=== PATIENT | female | born 1975 | race Caucasian/White ===

== ENCOUNTER 2017-07-07 09:56 | Day surgery (SDC) | payer OTHER ==
--- NOTE | 2017-06-27 10:51 | HP ---
AMENDED REPORT NOW INCLUDES COSIGNER DESIGNATION - ESIGNED BEFORE ADJUSTMENT PREOPERATIVE HISTORY AND PHYSICAL: DATE OF ADMISSION/SURGERY: 07/07/17 ATTENDING PHYSICIAN: Dara Schroeder MD * (DICTATED BY ALEXA ASKEW) PROCEDURE: Left shoulder arthroscopic rotator cuff repair, decompression and debridement, subpectoral biceps tenodesis. CHIEF COMPLAINT: Left shoulder pain. HISTORY OF PRESENT ILLNESS: Beverly is a 41-year-old female who presents to the clinic for left shoulder pain due to biceps tendonitis and rotator cuff repair. She has failed conservative measures and therefore, agreed to undergo a left shoulder arthroscopic rotator cuff repair, decompression and debridement, subpectoral biceps tenodesis with Dr. Schroeder on 07/07/17. PAST MEDICAL HISTORY: Anxiety, obesity, migraines, GERD, degenerative disk disease, left ankle fracture, fibromyalgia, history of convulsions from Lyrica, history of DVTs 10 years ago. PAST SURGICAL HISTORY: Left ankle x7, left knee x2, cholecystectomy, and right knee surgery. MEDICATIONS: 1. Cetirizine 10 mg 1 by mouth daily. 2. ProAir HFA 180-90 mcg per ACT 1 to 2 puffs every 4 to 6 hours as needed for shortness of breath. 3. Valacyclovir 1 g for 5 days, repeat as needed. 4. Sumatriptan succinate 100 mg 1 by mouth on headache onset. 5. Percocet 5/325, 1 to 2 by mouth every 6 hours as needed for pain. 6. Methocarbamol 750 mg 1 to 2 tabs every 8 hours as needed for muscle spasms. 7. Omeprazole 20 mg 1 by mouth every day. 8. Diclofenac sodium 75 mg 1 by mouth twice a day. 9. Fluticasone propionate 50 mcg per ACT, 2 sprays in each nostril once daily. 10. Duloxetine 15 mg take 1 by mouth daily. 11. Medical marijuana as needed. 12. Multivitamin 1 by mouth daily. ALLERGIES: ZANAFLEX, COPAXONE, Ether, COMPAZINE, ERYTHROMYCIN, LYRICA, GABAPENTIN, VOLTAREN. FAMILY HISTORY: Positive for diabetes, cancer, hypertension, and hypothyroidism. SOCIAL HISTORY: She lives with her daughter. She denies smoking. She reports occasional alcohol use. She denies illegal drug use. REVIEW OF SYSTEMS: A 14-point review of systems was reviewed with the patient. Positive for current complaint, otherwise negative. Denies chest pain, shortness of breath, fevers, chills, history of bleeding disorder. Positive for a history of DVT 10 years ago. PHYSICAL EXAMINATION GENERAL: A 41-year-old well-developed, well-nourished female, in no acute distress. Alert and oriented x3. Appropriate mood and affect. VITAL SIGNS: Height 61.5 inches, weight 210. Pulse 84, blood pressure 132/78, respiratory rate 14, temperature 98.1. BMI 39. HEENT: Normocephalic, atraumatic. PERRLA. Throat: Clear. NECK: Supple. LUNGS: Clear to auscultation bilaterally. No wheezing, rhonchi, or rales. CARDIO: Regular rate and rhythm. S1 and S2. No murmurs, gallops or rubs. No edema. ABDOMEN: Positive bowel sounds. Soft, nontender. MUSCULOSKELETAL: Left upper extremity, skin is intact. No warmth or erythema. Tender over the bicipital groove, nontender over the AC joint. A +4/5 strength to supraspinatus testing, positive [place], positive impingement, positive Baird and [place]er, [place], Speed. +2 radial pulse. Sensation is intact to light touch distally. NEUROLOGIC: Alert and oriented x3. Cranial nerves grossly intact. DIAGNOSTIC STUDIES: MRI revealed small full thickness tear to the anterior portion of the supraspinatus tendon. IMPRESSION: Left shoulder rotator cuff tear and biceps tendonitis. PLAN: The patient is scheduled to undergo a left shoulder arthroscopic rotator cuff repair, decompression and debridement, subpectoral biceps tenodesis with Dr. Schroeder on 07/07/17. She will return to the office 10 to 14 days postop for followup and suture removal. Oxycodone will be used as needed for postop pain. Keflex will be sent for antibiotic prophylaxis. The patient will also be on Lovenox 7 days postop for DVT prophylaxis due to her prior history of deep venous thrombosis. ALEXA ASKEW [id number]/[facility] #: [id number] [facility]ARE SYSTEMQuincy
[~2017-07-07 09:56] MED LIST: Buffered Lidocaine 0.9% SYRIN* 5 ML/SYR SYRINGE INTRADERM ONE
[2017-07-07] MEDS ORDERED: ceFAZolin 2 GM PREMIX (*) 2 GM/50 ML BAG IVPB ONE (10:24)
[2017-07-07] MEDS ORDERED: Ondansetron INJ* 2 MG/ML VIAL IV PRN (11:15)
[2017-07-07] MEDS ORDERED: DiMENhydriNATE IV* 50 MG/ML VIAL IV PUSH PRN (11:15)
[2017-07-07] MEDS ORDERED: fentaNYL* 50 MCG/ML 2 ML VIAL (100 MCG VIAL) IV PRN (11:15)
[2017-07-07] MEDS ORDERED: HYDROmorphone INJ* 1 MG/ML CARPUJECT SYRINGE IV PRN (11:15)
[2017-07-07] MEDS ORDERED: Acetaminophen TAB* 325 MG PO PRN (11:15)
[2017-07-07] MEDS ORDERED: Midazolam* 1 MG/ML 2 ML VIAL (2 MG) ONE ×2 (11:26→12:12)
[2017-07-07] MEDS ORDERED: fentaNYL* 50 MCG/ML 2 ML VIAL (100 MCG VIAL) ONE ×2 (11:26→12:20)
[2017-07-07] MEDS ORDERED: Bupivacaine 0.25% SDV* 30 ML ONE (11:48)
[2017-07-07] MEDS ORDERED: Famotidine IV* 10 MG/ML 2 ML (20 mg) ONE (11:50)
[2017-07-07] MEDS ORDERED: ROPIVACAINE 5 MG/ML 30 ML BTL (0.5%) ONE (11:50)
[2017-07-07] MEDS ORDERED: Labetalol IV* 5 MG/ML 20 ML VIAL ONE (12:23)
[2017-07-07] MEDS ORDERED: Ketorolac INJ* 30 MG/ML 1 ML VIAL ONE (12:23)
[2017-07-07] MEDS ORDERED: Dexamethasone IV* 4 MG/ML 1 ML (4 MG) ONE (12:23)
[2017-07-07] MEDS ORDERED: Ondansetron INJ* 2 MG/ML VIAL ONE (12:23)
[2017-07-07] MEDS ORDERED: Propofol* 10 MG/ML 20 ML BTL IV PUSH ONE (12:23)
[2017-07-07 15:09] VITALS: BP 150/89
--- NOTE | 2017-07-21 15:36 | OP ---
DATE OF OPERATION: 07/07/17 [facility] DATE OF : 73 SURGEON: Dara Schroeder MD. IT ANALYST: ALEXA Bermeo. PRE-OP DIAGNOSIS: Left shoulder high-grade partial-thickness tear of the rotator cuff. POST-OP DIAGNOSIS: Left shoulder high-grade partial-thickness tear of the rotator cuff, SLAP tear OPERATIVE PROCEDURE: 1. Left shoulder arthroscopy with glenohumeral debridement. 2. Arthroscopic biceps tenodesis. 3. Rotator cuff tear, supraspinatus tendon, repair in a double-row fashion. 4. Subacromial decompression with acromioplasty. COMPLICATIONS: None. ESTIMATED BLOOD LOSS: Minimal. IMPLANTS USED: One Sherman [employer] Nephew 4.75 Fast-Fix, 1 Multifix, and 1 Q-Fix 2.8 mm . INDICATIONS: Beverly Wallis is a 41-year-old female who has had left shoulder pain for a number of years off and on. She has failed conservative management. She has done physical therapy. She has been diagnosed with a partial thickness tear. Her symptoms got worse. After extensive discussion of the risks and benefits of operative versus nonoperative treatment, she would like to proceed with surgical treatment. Risks include but are not limited to bleeding, infection, damage to nerve vessels, surrounding structures, wound nonhealing, persistent pain, need for further surgery, scarring, stiffness, incomplete relief of symptoms, risks of anesthesia. DESCRIPTION OF PROCEDURE: The patient was greeted in the preoperative area by the attending surgeon. The correct extremity was marked and consent was confirmed. The patient then underwent preoperative interscalene block by the anesthesiologist, after which she was brought to the to the operating suite where she was placed in the supine position on the operating room table. She then underwent general anesthesia and endotracheal intubation, after which she was placed in the right lateral decubitus position. All bony prominences were padded. The left arm was draped unsterilely with 10-pound traction. The left shoulder was then prepped and draped in usual sterile fashion beginning with chlorhexidine soap and scrub, alcohol wipe, and final prep with ChloraPrep. After appropriate surgical pause, indicating side, site, procedure, administration of antibiotics, a standard posterolateral portal was made sharply with an 11 blade. The scope was introduced into the joint and the joint was examined. There was grade 0 to 1 changes of glenohumeral joint. There was anterior posterior superior fraying. There was undersurface tearing of the supraspinatus, which was intact with abundant hyperemia and erythema in the joint as well as synovitis inferiorly. The biceps tendon had obvious fraying and the superior labrum was detached. The biceps was then tagged using 0 PDS suture and tenotomized for later tenodesis to be done arthroscopically. Once the debridement was completed, attention was directed to the subacromial space. The scope was positioned in the subacromial space. The lateral portal was made in an outside-in fashion. The soft tissue and bursa was debrided back using a shaver. The undersurface of the acromion was exposed using electro-cautery device. A small spur was identified. The 4-0 oval deepak was then used to do an acromioplasty. Attention has been directed to the biceps and the rotator cuff, which had high grade partial-thickness tear in the bursal side as well; decision was made to do a repair. Prior to this, the biceps was addressed. The biceps groove was identified arthroscopically. The biceps was mobilized and then through a separate stab incision, a 2.8 mm Q-Fix guide was placed with excellent purchase. The sutures were then passed through the biceps tendon at the level of the bicipital groove. The sutures were then tied down and excess stump was then debrided back. Attention was then directed to the rotator cuff. The greater tuberosity was debrided and removed of any loose tissue using electrocautery device. A rasp was used to help decorticate those, a 4-0 oval deepak gently decorticated the tuberosity. The rotator cuff was also debrided back to a stable layer. The cuff was then mobilized. Through a separate stab incision, 4.75 Healicoil was placed. There was excellent purchase along the medial row. The sutures were passed through the tendon in a horizontal mattress configuration and tied down using arthroscopic knot tying. The strands were then passed through a Multifix anchor which was then secured laterally for lateral fixation. Final images were obtained. Shoulder was taken through gentle range of motion and found to be intact. The wounds were copiously irrigated with sterile saline. The portals were closed with 3-0 nylon. Sterile dressings, Cryo/Cuff and Ultra sling were applied. She was awoken from anesthesia and transferred to PACU in stable condition. POSTOPERATIVE PLAN: She will be discharged on pain medications. She is already in the pain clinic. We will coordinate with them for her pain management. DVT prophylaxis was considered, but deferred due to no previous personal or family history. I will see the patient back in 10 to 14 days. [id number]/[facility] #: [id number] MTDD
== END 2017-07-07 15:10 | disposition home or self-care (01) ==
LOC: OREAST 09:56
PROVIDERS: ATTEND Orthopaedic Surgery
DX: M75.112 Incomplete rotator cuff tear or rupture of left shoulder, not specified as traumatic (principal); G89.18 Other acute postprocedural pain; F41.9 Anxiety disorder, unspecified; E66.9 Obesity, unspecified; Z68.39 Body mass index [BMI] 39.0-39.9, adult; G43.909 Migraine, unspecified, not intractable, without status migrainosus; K21.9 Gastro-esophageal reflux disease without esophagitis; M79.7 Fibromyalgia; Z88.8 Allergy status to other drugs, medicaments and biological substances; Z88.1 Allergy status to other antibiotic agents; Z88.6 Allergy status to analgesic agent
CPT/HCPCS: 81025; C1713; C1776; J0690; J1100; J1885; J2250; J2405; J2704; J2795; J3010

== ENCOUNTER 2017-09-29 07:39 | Day surgery (SDC) | payer OTHER ==
[~2017-09-29 07:39] MED LIST changes: +Dexamethasone IV* 4 MG/ML 1 ML (4 MG) IV SLOW PU ONE; +Famotidine IV* 10 MG/ML 2 ML (20 mg) IV ONE
[2017-09-29] MEDS ORDERED: Dexamethasone IV* 4 MG/ML 1 ML (4 MG) ONE (07:57)
[2017-09-29] MEDS ORDERED: ceFAZolin 2 GM (*##) 2 GM/100 ML BAG USE CEFA2SOL IVPB ONE (07:57)
[2017-09-29] MEDS ORDERED: Famotidine IV* 10 MG/ML 2 ML (20 mg) ONE (07:57)
[2017-09-29] MEDS ORDERED: Bupivacaine 0.25% SDV* 30 ML ONE (08:08)
[2017-09-29] MEDS ORDERED: Propofol* 10 MG/ML 20 ML BTL IV PUSH ONE (08:45)
[2017-09-29] MEDS ORDERED: Lidocaine 2% PF * 5 ML VIAL ONE (08:45)
[2017-09-29] MEDS ORDERED: Mivacurium Chloride* 20 MG/10 ML VIAL IV ONE (08:45)
[2017-09-29] MEDS ORDERED: fentaNYL* 50 MCG/ML 2 ML VIAL (100 MCG VIAL) ONE (08:47)
[2017-09-29] MEDS ORDERED: Midazolam* 1 MG/ML 2 ML VIAL (2 MG) ONE ×2 (08:47)
[2017-09-29] MEDS ORDERED: ROPIVACAINE 5 MG/ML 30 ML BTL (0.5%) ONE (09:05)
[2017-09-29] MEDS ORDERED: Ketorolac INJ* 30 MG/ML 1 ML VIAL IV PRN (10:19)
[2017-09-29] MEDS ORDERED: fentaNYL* 50 MCG/ML 2 ML VIAL (100 MCG VIAL) IV PRN (10:19)
[2017-09-29] MEDS ORDERED: diPHENhydraMINE IV* 50 MG/ML 1 ml VIAL (BENADRYL) IV PRN (10:19)
[2017-09-29] MEDS ORDERED: Naloxone* 0.4 MG/ML 1 ML VIAL IV PRN (10:19)
[2017-09-29] MEDS ORDERED: oxyCODONE/Acetamin 5/325 MG* TAB PO PRN (10:19)
[2017-09-29] MEDS ORDERED: Ondansetron INJ* 2 MG/ML VIAL ONE (10:44)
[2017-09-29 11:56] VITALS: BP 142/90
--- NOTE | 2017-09-30 08:10 | OP ---
CC: PCP, Melvin Browning MD * DATE OF OPERATION: 09/29/17 [facility] DATE OF : 73 SURGEON: Dara Schroeder MD TRANSITIONAL CARE MANAGER: ALEXA Bermeo. An information services assistant was needed for the entirety of the case to help with positioning, retraction and was utilized throughout all portions of the case. ANESTHESIOLOGIST: Dr. Sapp. ANESTHESIA: General with interscalene block. PRE-OP DIAGNOSIS: Retear of the left previous repaired rotator cuff. POST-OP DIAGNOSIS: Retear of the left previous repaired rotator cuff. OPERATIVE PROCEDURE: Left shoulder arthroscopy with revision of rotator cuff repair. COMPLICATIONS: None. ESTIMATED BLOOD LOSS: Minimal. IMPLANTS USED: Two 4.75 Healicoils and 1 MultiFix. INDICATIONS: Beverly Wallis is a 42-year-old female who underwent previous left shoulder rotator cuff repair with arthroscopic biceps tenodesis decompression and debridement within the last 2 months. She was in her postop recovery phase when she slipped and fell on her shoulder. She was diagnosed with a re-tear of the rotator cuff. She has failed conservative management and we discussed revision repair. The risks and benefits of surgery were discussed in length which include but not limited to bleeding, infection, damage to nerves, vessels , surrounding structures, wound nonhealing, persistent pain, need for further surgery, scarring, stiffness, incomplete relief of symptoms, risks of anesthesia. DESCRIPTION OF PROCEDURE: The patient was greeted in the preoperative area by the attending surgeon. Correct extremity was marked, consent was confirmed. The patient then underwent interscalene nerve block by the anesthesiologist, after which she was brought back to the operating suite and she was placed in supine position on the operating table. She then underwent general anesthesia and endotracheal intubation after which she was placed in the right lateral decubitus position with an axillary roll. All bony prominences were padded. She was secured with peg board and the left arm was draped unsterile with 10 pounds of traction. The left shoulder was prepped and draped in usual sterile fashion beginning with chlorhexidine soap, scrub, and alcohol wipe and a final prep with ChloraPrep. After appropriate surgical pause indicating site, side, procedure, administration of antibiotics, the standard posterolateral portal was made sharply with an 11 blade. The scope was introduced into the joint and the joint was examined. There was evidence of full thickness tear of the supra encompassing the anterior portion of the infraspinatus. The glenohumeral joint had a mild amount of wear with 0 to 1 changes. The biceps had previously been tenotomized. The undersurface of the sub- scap was intact, but had injection irritation. There was damage and tearing of the anterior interval. The inferior recess was intact. There was abundant synovitis and erythema in the joint. After the glenohumeral joint was examined, the scope was repositioned to subacromial space. There was abundant bursa present. This was debrided back using the shaver until it exposed the rotator cuff tear. The previous sutures were then carefully removed. These required cutting some of the remaining strands. The tendon had torn through the sutures. Excess tissues were removed. The lateral portal was made in an outside-in fashion. The cuff was then carefully mobilized. The foot print was completely bare at the previous tear and starting to tear into the infraspinatus foot print. The shaver was used to debride the tendon back. The anterior portal was made in an outside-in fashion. Two anchors were placed through separate stab incisions, two 4.75 Healicoils were placed in the medial row and passed through the tendon in a horizontal mattress configuration and then tied down. The sutures were then passed through a MultiFix anchor, which was placed in lateral row fixation. This allowed for sabianist of the cuff to the tuberosity as well as lying it down upon the tuberosity. The final images were obtained. The wounds were copiously irrigated with sterile saline. The portals were closed with 3-0 nylon. Sterile dressings were applied. Cryo/Cuff and Ultra sling were applied. She was awoken from anesthesia and transferred to PACU in stable condition. POSTOPERATIVE PLAN: She will be nonweightbearing. She will be in the sling for 6 weeks. She will be started on physical therapy at 4 weeks. I will see the patient back in 10 to 14 days. DVT prophylaxis was considered and because she has a history, we will place her on Lovenox for 2 weeks postop. [id number]/[facility] #: [id number] MTDQuincy
== END 2017-09-29 12:10 | disposition home or self-care (01) ==
LOC: OREAST 07:39
PROVIDERS: ATTEND Orthopaedic Surgery
DX: S46.012A Strain of muscle(s) and tendon(s) of the rotator cuff of left shoulder, initial encounter (principal); W19.XXXA Unspecified fall, initial encounter; Y92.9 Unspecified place or not applicable; F41.9 Anxiety disorder, unspecified; G89.18 Other acute postprocedural pain
CPT/HCPCS: 81025; C1713; J1100; J2250; J2405; J2704; J2795; J3010

== ENCOUNTER 2018-03-03 15:43 | Emergency (ER) | payer MEDICAID, OTHER ==
--- OUTSIDE RECORDS SUMMARY | 2018-03-03 15:58 | XMS REPORT ---
:1975 External Reference #:[id number] Author Organization [facility] Address [address], [address] [place] [address] Phone [phone] Care Team Providers Name Role Phone Anny Gay PA Care Team Information Supervisor Nutritional Yeast Unavailable Anny Gay PA Primary Care Physician Unavailable Payers Type Date Identification Numbers Payment Provider Subscriber Commercial Policy Number: [id number] [employer] Beverly Wallis PayID: [id number] [address] [place] [address] Problems Date Description Provider Status Onset: 02/24/2018 Anxiety state ALEXA Ruiz Active Onset: 02/24/2018 Moderate recurrent major depression ALEXA Ruiz Active Onset: 02/24/2018 Gastroesophageal reflux disease ALEXA Ruiz Active Onset: 02/24/2018 Mild intermittent asthma ALEXA Ruiz Active Family History Date Family Member(s) Problem(s) Comments Father Alzheimer's Disease Father Diabetes Father Hypertension Father Prostate Cancer : (age 68 Mother due to Cancer Thyroid Years) Mother Hypertension Mother Obesity Children 1 First Daughter 17 Paternal Grandfather due to Aneurysm () Paternal Grandmother due to Diabetes () Maternal Grandfather due to Heart Disease () Maternal Grandmother due to Motor Vehicle () Accident Social History Type Date Description Comments Lives With Boyfriend Jameson Diet Patient follows no dietary Healthy diet. Cooks at home. restrictions Occupation Unemployed Trying for disability due to chronic joint condition and mental health issues. Cigarette Use Never Smoked Cigarettes Uses medical marijuana ETOH Use Currently consumes alcohol ETOH Use Currently consumes alcohol 1 glass red wine nightly Smoking Patient denies history of smoking Smoking Patient denies history of smoking Daily Caffeine Consumes on average 1 cup of hot tea per day Allergies, Adverse Reactions, Alerts Date Description Reaction Status Severity Comments 02/24/2018 Compazine active skin disturbance 02/24/2018 Pyridium active vomiting, blisters 02/24/2018 Zanaflex active hives 02/24/2018 Adhesives active paper tape, gives blisters Medications Medication Date Status Form Strength Qnty SIG Indications Ordering Provider Methocarbamol 02/24/ Active Tablets 500mg 14tab 1 tabs by Yue 2017 s mouth at Fanta Ralph bedtime as needed for muscle spasm Ventolin HFA 02/24/ Active Aerosol 108(90Base 18gm 2 puffs J45.20 Yue 2017 ) mcg/Act every 4 Fanta Ralph hours as needed for cough and wheeze Duloxetine HCL / Active Caps DR Part 60mg 1 by Unknown 0000 mouth every day along with 30 mg to equal 90 daily Diclofenac / Active Tablets DR 75mg take 1 Unknown Sodium 0000 tablet by mouth twice daily with food Hydroxyzine / Active Capsules 25mg take one Unknown Pamoate 0000 capsule by mouth every 8 hours as needed (maximum daily dose=3) Zyrtec Allergy / Active Tablets 10mg 1 tab by Unknown 0000 mouth every night Omeprazole / Active Capsules DR 20mg 1 by K21.9 Unknown 0000 mouth every day Oxycodone-Aceta / Active Tablets 7.5-325mg Unknown minophen 0000 Sumatriptan / Active Tablets 100mg 1 tab by G43.009 Unknown Succinate 0000 mouth first sign of migraine may repeat once after 2 hours, if needed Mirena (52 MG) / Active IUD 20mcg/24HR Unknown 0000 Flonase Allergy / Active Suspension 50mcg/Act 1 spray J30.9 Unknown Relief 0000 each nare every day Vital Signs Date Vital Result Comment 02/24/2018 BP Systolic 114 mmHg BP Diastolic 72 mmHg Body Temperature 97.5 F Heart Rate 84 /min Respiratory Rate 18 /min Height 62.5 inches 5'2.50" Weight 181.00 lb BMI (Body Mass Index) 32.6 kg/m2 BSA (Body Surface Area) 1.84 m2 Harrison body weight in kilograms 51 O2 % BldC Oximetry 97 % Results Test Date Test Result H/L Range Note Urine Dipstick 02/24/2018 Ua Color yellow Yellow Ua Clarity clear Clear Ua Leuko neg Negative Ua Nitrite neg Negative Ua Urobilinogen 0.2 0.2 - 1.0 E.U./dL Ua Protein neg Negative Ua PH 6.5 6.5-7.5 Ua Blood neg Negative Ua Specific [place] 1.020 1.010-1.030 Ua Ketones neg Negative Ua Bilirubin neg Negative Ua Glucose neg Negative Procedures Date CPT Code Description Status 07/21/2016 Mammogram Completed Plan of Care Future Appointment(s):03/24/2018 3:30 pm - ALEXA Ruiz at [facility]02/24/2018 - ALEXA RuizJ45.20 Mild intermittent asthma, uncomplicatedNew Medication:Ventolin HFA 108(90 Base) mcg/ActK21.9 Gastro- esophageal reflux disease without esophagitisComments:Limit spiciy and acidic foods in the diet. Eat small meals and snacks. Avoid eating just prior to bedtime. Elevated the head of the bed to reduce nightime symptoms.F33.1 Major depressive disorder, recurrent, moderateComments:Please consult with psychiatry at [facility]. We can fill your meds until you have a consult. But, this service should be available to you and I think it would be preferable.F41.9 Anxiety disorder, unspecifiedFollow up:1 month PE. record Release
--- OUTSIDE RECORDS SUMMARY | 2018-03-03 15:59 | XMS REPORT ---
:1975 External Reference #:[id number] Author Organization [facility] Address [address] [place] [address] Phone [phone] Care Team Providers Name Role Phone Melvin Browning III, MD Primary Care Physician Unavailable Payers Type Date Identification Numbers Payment Provider Subscriber Medicaid Policy Number: [id number] Medicaid [employer] Name: 1 1 [address] PayID: [id number] [place] [address] Commercial Expires: 2018 Policy Number: [id number] [employer] Number: [id number] [address] PayID: [id number] [place] [address] Commercial Effective: 2015 Policy Number: [id number] [employer] Expires: 2015 PayID: [id number] [address] [place] [address] Medigap Part B Expires: 2016 Policy Number: [id number] Medicaid [employer] Name: [phone] [address] PayID: [id number] [place] [address] Commercial Expires: 2016 Policy Number: [id number] [employer]ay [employer] Name: [id number] [address] PayID: [id number] [place] [address] Workers Compensation Effective: 2015 Policy Number: No Fault [employer] [id number] Onset: 2015 PayID: [id number] Medigap Part B Expires: 2015 Policy Number: [id number] Medicaid [employer] Name: 1 1 [address] PayID: [id number] [place] [address] Problems Date Description Provider Status Onset: 03/28/2015 Anxiety Tom Dobson NP Active Onset: 03/28/2015 Primary fibromyalgia syndrome Tom Dobson NP Active Onset: 03/28/2015 Chronic pain Tom Dobson NP Active Onset: 03/28/2015 Gastroesophageal reflux disease Tom Dobson NP Active Onset: 05/09/2015 Genital herpes simplex Tom Dobson NP Active Onset: 05/17/2015 Knee joint effusion Alejandrina Burns M.D. Active Onset: 06/05/2015 Sprain of anterior cruciate ligament of Dara Schroeder MD Active right knee, subs Onset: 05/27/2017 Injury of shoulder region Dara Schroeder MD Active Onset: 05/27/2017 Strain of musc/tend the rotator cuff of Dara Schroeder MD Active left shoulder, subs Onset: 05/27/2017 Lesion of ulnar nerve Dara Schroeder MD Active Family History Date Family Member(s) Problem(s) Comments General Diabetes General Cancer Father Diabetes Father Bipolar Disorder Father Hypertension 69 Mother due to Thyroid Cancer () Social History Type Date Description Comments Marital Status Single Lives With Daughter Occupation [employer] ETOH Use Occasionally consumes alcohol Smoking Patient has never smoked Daily Caffeine Consumes on average 1 cup of regular coffee per day Exercise Type/Frequency Does not exercise Allergies, Adverse Reactions, Alerts Date Description Reaction Status Severity Comments 03/20/2015 Zanaflex active 03/20/2015 Copaxone active 03/20/2015 Ethyol active 03/24/2015 Compazine active 03/24/2015 Erythromycin active 03/24/2015 Lyrica Convulsions active 03/24/2015 Gabapentin Hives active 03/24/2015 Pyridium active 03/30/2015 Voltaren active Medications Medication Date Status Form Strength Qnty SIG Indications Ordering Provider Duloxetine HCL 09/17/ Active Caps DR 30mg 30caps 1 by mouth Tom 2018 Part every day LOLLY Dobson Hydroxyzine 09/10/ Active Capsules 25mg 60caps 1-2 caps Tom Pamoate 2018 by mouth LOLLY Dobson three times a day as needed for anxiety Cetirizine HCL 12/24/ Active Tablets 10mg 30tabs Take 1 Tom 2017 Tablet By LOLLY Dobson Mouth Once Daily Valacyclovir 05/19/ Active Tablets 1gm 20tabs 1 every Tom HCL 2015 day for 5 LOLLY Dobson days , repeat as needed Sumatriptan 09/12/ Active Tablets 100mg 9tabs Take One Tom Succinate 2015 Tablet By LOLLY Dobson Mouth AT Onset Of Headache Methocarbamol 06/20/ Active Tablets 750mg 60tabs take one Zaeziob 2014 to two MD Alexandre tablets by mouth every 8 hours as needed for muscle spasm Omeprazole 06/19/ Active Capsules 20mg 30caps Take One Tom 2015 DR Capsule By LOLLY Dobson Mouth Once Daily Diclofenac 06/05/ Active Tablets DR 75mg 60tabs Take One S83.511D Zaneb Sodium 2014 Tablet By MD Alexandre Mouth Twice Daily With Food Duloxetine HCL 05/10/ Active Caps DR 60mg 30caps take one M60.80 Tom 2014 Part capsule by LOLLY Dobson mouth once daily F41.9 Fluticasone 05/10/2015 Active Suspension 50mcg/Act 16units Use Two Tom Propionate [place](S) In LOLLY Dobson Each Nostril Once Daily Percocet Active Tablets 7.5-325mg 1 by mouth Unknown every 6 hours as needed pain Oxycodone HCL 10/02/2017 Hx Tablets 10mg 30tabs take 1/2-1 tab Zaneb - every 6-8 Yaseen, 12/24/2017 hours as MD needed pain Oxycodone HCL 09/29/2017 Hx Tablets 5mg 30tabs 1-2 tabs by Zaneb - mouth every se, 10/30/2017 4-6 hours as MD needed post op pain Lovenox 09/29/2017 Hx Solution 40mg/0.4ML 10inj 1- 40 mg Zaneb - injection se, 12/24/2017 subcutaneously MD daily x 10 days. please dispense appropriate amount. do not take before surgery Keflex 09/29/2017 Hx Capsules 500mg 12caps take 1 tab by Zaneb - mouth four Yaseen, 12/24/2017 times a day x MD 3 days Ketorolac 07/07/2017 Hx Tablets 10mg 20tabs take 1 by Zaneb Tromethamine - mouth every 6 Yaseen, 09/25/2017 hours x 5 MD days. Start 07/08 Tramadol HCL 07/07/2017 Hx Tablets 50mg 30tabs 1-2 tablet by Zaneb - mouth every Yaseen, 12/24/2017 4-6 hours as MD needed pain Keflex 07/05/2017 Hx Capsules 500mg 12caps take 1 tab by Zaneb - mouth four Yase, 09/25/2017 times a day x MD 3 days. Do not take before surgery Lovenox 07/05/2017 Hx Solution 40mg/0.4ML 7inj 1- 40 mg Zaneb - injection se, 09/25/2017 subcutaneously MD daily x 7 days. please dispense appropriate amount. do not take before surgery Oxycodone HCL 06/26/2017 Hx Tablets 5mg 28tabs 1 tab by mouth Zaneb - every 6 hours , 09/25/2017 as needed for MD pain. Proair HFA 11/21/2016 Hx Aerosol 108(90Base 8.5units take 1-2 puffs Tom - ) mcg/Act every 4-6 Olya, COMPLIANCE VICE PRESIDENT 06/30/2017 hours as needed for shortness of breath. Doxycycline 08/07/2016 Hx Capsules 100mg 20caps one tablet J Tom Hyclate - twice daily 0 Olya, COMPLIANCE VICE PRESIDENT 08/17/2016 for 10 days. 6 . 9 Ciclopirox 08/07/2016 Hx Solution 8% 6.600ml apply to B Tom - affected 3 Olya, COMPLIANCE VICE PRESIDENT 01/13/2017 toenails once 5 daily. remove . every 7 days 1 with alcohol Fluconazole 07/19/2016 Hx Tablets 150mg 2tabs one by mouth Elizabeth - may repeat in [place], 07/25/2016 3 days as N.P. needed Benzonatate 07/10/2016 Hx Capsules 200mg 30caps one by mouth J Tom - three times 0 Olya, COMPLIANCE VICE PRESIDENT 01/13/2017 daily as 1 needed for . cough 9 0 Amoxicillin/Cl 07/10/2016 Hx Tablets 875-125mg 20tabs take one J Tom avulanate - tablet q12 0 Olya, COMPLIANCE VICE PRESIDENT Potassium 07/20/2016 hours for 10 1 days . 9 0 ACL Functional 09/28/2015 Hx 1units dispo 1 S Zaneb Brace - 8 Yaseen, 01/13/2017 3 MD . 5 1 1 D Percocet 08/10/2015 Hx Tablets 5-325mg 60tabs 1-2 by mouth S Zaneb - every 6 hours , 09/25/2017 as needed pain 3 MD . 5 1 1 D Lovenox 08/10/2015 Hx Solution 40mg/0.4ML 21units 1 injection SQ S Zaneb - QDay following , 05/19/2016 surgery for 3 MD three weeks . 5 1 1 D Keflex 08/10/2015 Hx Capsules 500mg 15caps one tablet S Zaneb - three times a , 12/07/2015 day x 5 days 3 MD . 5 1 1 D Requip 06/20/2015 Hx Tablets 0.5mg 90tabs take three Tom - tablets by LOLLY Dobson 08/27/2016 mouth every day Requip 06/19/2015 Hx Tablets 5mg 90tabs 3 tabs by Tom - mouth daily LOLLY Dobson 06/20/2015 Naproxen 04/04/2015 Hx Tablets 500mg 60tabs Take One Ruslan - Tablet By Pamela Aleman, 06/23/2017 Mouth Twice M.D.,FACP Daily With Food as Needed For Pain Duloxetine HCL 03/24/[address] 30mg 60caps take one cap. M Tom - Part once daily for 6 LOLLY Dobson 05/10/2015 one week then 0 increase to 2 . caps daily. 8 0 Pennsaid 03/24/2015 Hx Solution 2% 112gm Apply 2 pumps 7 Tom - of solution to 1 LOLLY Dobson 05/09/2015 affected knee 9 twice daily. . 4 6 Zoloft Hx 100mg 1 po daily 7 Tom - 2 LOLLY Dobson 03/24/2015 9 . 1 Zyrtec Allergy Hx Tablets 10mg 30tabs 1 by mouth Tom - daily LOLLY Dobson 12/24/2016 Hydrocodone-Ac Hx Unknown etaminophen - 03/24/2015 Flexeril Hx Unknown - 03/24/2015 Ibuprofen Hx Tablets 800mg by mouth three Unknown - times a day as 04/04/2015 needed Hydrocodone-Ac Hx Tablets 5-325mg 1 by mouth Unknown etaminophen - every 4-6 05/09/2015 hours prn. Amitriptyline Hx Tablets 50mg 1 by mouth Unknown HCL - every night at 12/07/2015 bedtime Ibuprofen Hx Tablets 800mg by mouth three Unknown - times a day as 06/23/2017 needed Medications Administered in Office Medication Date Status Form Strength Qnty SIG Indications Ordering Provider Triamcinolone Injection Marisol (Kenalog) 2016 WESLEY Chamberlain Vital Signs Date Vital Result Comment 02/03/2018 Height 61.5 inches 5'1.50" Weight 180.00 lb Heart Rate 92 /min Respiratory Rate 16 /min Body Temperature 97.1 F BMI (Body Mass Index) 33.5 kg/m2 01/22/2018 Height 61.5 inches 5'1.50" Weight 180.00 lb Heart Rate 86 /min BP Systolic Sitting 127 mmHg BP Diastolic Sitting 80 mmHg Respiratory Rate 14 /min Pain Level 6 BMI (Body Mass Index) 33.5 kg/m2 12/30/2017 Height 61.5 inches 5'1.50" Weight 179.00 lb Heart Rate 84 /min BP Systolic 132 mmHg BP Diastolic 80 mmHg Respiratory Rate 17 /min Body Temperature 95.3 F Pain Level 4 BMI (Body Mass Index) 33.3 kg/m2 12/26/2017 Height 61.5 inches 5'1.50" Weight 178.50 lb Heart Rate 85 /min BP Systolic 135 mmHg BP Diastolic 83 mmHg O2 % BldC Oximetry 100 % BMI (Body Mass Index) 33.2 kg/m2 12/25/2017 Height 61.5 inches 5'1.50" Weight 181.75 lb Heart Rate 72 /min BP Systolic 132 mmHg BP Diastolic 96 mmHg Respiratory Rate 16 /min Body Temperature 98.1 F Pain Level 0 BMI (Body Mass Index) 33.8 kg/m2 11/17/2017 Weight 193.75 lb Heart Rate 82 /min BP Systolic 130 mmHg BP Diastolic 78 mmHg O2 % BldC Oximetry 98 % 11/13/2017 Height 61.5 inches 5'1.50" Weight 192.00 lb BP Systolic 132 mmHg BP Diastolic 84 mmHg Respiratory Rate 18 /min Body Temperature 97.6 F Pain Level 4 BMI (Body Mass Index) 35.7 kg/m2 10/09/2017 Height 61.5 inches 5'1.50" Weight 192.00 lb BP Systolic 134 mmHg BP Diastolic 82 mmHg Respiratory Rate 20 /min Body Temperature 97.9 F Pain Level 4 BMI (Body Mass Index) 35.7 kg/m2 09/16/2017 Height 61.5 inches 5'1.50" Heart Rate 79 /min BP Systolic 126 mmHg BP Diastolic 82 mmHg Respiratory Rate 16 /min Body Temperature 97.7 F Pain Level 5 08/29/2017 Height 61.5 inches 5'1.50" Weight 210.00 lb BP Systolic 130 mmHg BP Diastolic 74 mmHg Respiratory Rate 20 /min Pain Level 6 BMI (Body Mass Index) 39.0 kg/m2 08/07/2017 Height 61.5 inches 5'1.50" Weight 210.00 lb BP Systolic 128 mmHg BP Diastolic 82 mmHg Respiratory Rate 20 /min Body Temperature 97.4 F Pain Level 2 BMI (Body Mass Index) 39.0 kg/m2 07/17/2017 Height 61.5 inches 5'1.50" Heart Rate 59 /min BP Systolic Standing 140 mmHg BP Diastolic Standing 77 mmHg Respiratory Rate 20 /min Body Temperature 97.5 F Pain Level 1 06/26/2017 Height 61.5 inches 5'1.50" Weight 210.00 lb Heart Rate 84 /min BP Systolic 132 mmHg BP Diastolic 78 mmHg Respiratory Rate 14 /min Body Temperature 98.1 F Pain Level 5 BMI (Body Mass Index) 39.0 kg/m2 06/23/2017 Height 61.5 inches 5'1.50" Weight 216.00 lb Heart Rate 75 /min BP Systolic Sitting 152 mmHg BP Diastolic Sitting 98 mmHg Body Temperature 99.1 F O2 % BldC Oximetry 97 % BMI (Body Mass Index) 40.1 kg/m2 05/27/2017 Height 61 inches 5'1" Weight 216.00 lb BP Systolic 130 mmHg BP Diastolic 86 mmHg Respiratory Rate 20 /min Pain Level 6 BMI (Body Mass Index) 40.8 kg/m2 05/09/2017 Weight 216.00 lb Heart Rate 85 /min BP Systolic Sitting 142 mmHg BP Diastolic Sitting 88 mmHg Pain Level 7 L upper arm O2 % BldC Oximetry 99 % 04/16/2017 Height 61 inches 5'1" Weight 209.00 lb Heart Rate 91 /min BP Systolic Sitting 128 mmHg BP Diastolic Sitting 88 mmHg Pain Level 6 L shoulder, hand O2 % BldC Oximetry 98 % BMI (Body Mass Index) 39.5 kg/m2 01/13/2017 Weight 207.75 lb Heart Rate 87 /min BP Systolic 124 mmHg BP Diastolic 78 mmHg Body Temperature 97.9 F O2 % BldC Oximetry 99 % 08/07/2016 Weight 209.00 lb with shoes Heart Rate 82 /min BP Systolic Sitting 130 mmHg BP Diastolic Sitting 100 mmHg Body Temperature 97.6 F O2 % BldC Oximetry 99 % 07/10/2016 Weight 210.00 lb Heart Rate 84 /min BP Systolic 138 mmHg BP Diastolic 86 mmHg Body Temperature 98.2 F O2 % BldC Oximetry 98 % 12/07/2015 Weight 213.00 lb Heart Rate 80 /min BP Systolic Sitting 130 mmHg BP Diastolic Sitting 81 mmHg Body Temperature 98.3 F 09/28/2015 Height 61 inches 5'1" Weight 200.00 lb Pain Level 0 BMI (Body Mass Index) 37.8 kg/m2 08/24/2015 Height 61 inches 5'1" Weight 200.00 lb Body Temperature 98.3 F BMI (Body Mass Index) 37.8 kg/m2 08/10/2015 Height 61 inches 5'1" Weight 200.00 lb Heart Rate 100 /min BP Systolic 141 mmHg BP Diastolic 91 mmHg BMI (Body Mass Index) 37.8 kg/m2 06/05/2015 Height 61.5 inches 5'1.50" Weight 219.00 lb BMI (Body Mass Index) 40.7 kg/m2 05/17/2015 Height 61.5 inches 5'1.50" Weight 219.00 lb Pain Level 7 BMI (Body Mass Index) 40.7 kg/m2 05/10/2015 Height 61.5 inches 5'1.50" Weight 217.25 lb Heart Rate 109 /min BP Systolic Sitting 118 mmHg BP Diastolic Sitting 82 mmHg Body Temperature 97.9 F Pain Level 8 O2 % BldC Oximetry 98 % BMI (Body Mass Index) 40.4 kg/m2 04/14/2015 Height 61.5 inches 5'1.50" Weight 219.00 lb Pain Level 7 BMI (Body Mass Index) 40.7 kg/m2 03/24/2015 Height 61.5 inches 5'1.50" Weight 219.00 lb Heart Rate 86 /min BP Systolic Sitting 118 mmHg BP Diastolic Sitting 78 mmHg Body Temperature 98.5 F O2 % BldC Oximetry 97 % BMI (Body Mass Index) 40.7 kg/m2 03/20/2015 Height 61 inches 5'1" Weight 200.00 lb Heart Rate 92 /min BP Systolic 130 mmHg BP Diastolic 80 mmHg BMI (Body Mass Index) 37.8 kg/m2 Results Test Date Test Result H/L Range Note CBC Auto Diff 01/01/2018 White Blood Count 4.8 10^3/uL 3.5-10.8 Red Blood Count 4.06 10^6/uL 4.00-5.40 Hemoglobin 12.7 g/dL 12.0-16.0 Hematocrit 38 % 35-47 Mean Corpuscular Volume 93 fL 80-97 Mean Corpuscular Hemoglobin 31 pg 27-31 Mean Corpuscular HGB Conc 34 g/dL 31-36 Red Cell Distribution Width 13 % 10.5-15 Platelet Count 273 10^3/uL 150-450 Mean Platelet Volume 8.9 um3 7.4-10.4 Abs Neutrophils 3.1 10^3/uL 1.5-7.7 Abs Lymphocytes 1.0 10^3/uL 1.0-4.8 Abs Monocytes 0.4 10^3/uL 0-0.8 Abs Eosinophils 0.2 10^3/uL 0-0.6 Abs Basophils 0.1 10^3/uL 0-0.2 Abs Nucleated RBC 0 10^3/uL Granulocyte % 65.7 % 38-83 Lymphocyte % 20.6 % Low 25-47 Monocyte % 7.5 % High 0-7 Eosinophil % 5.1 % 0-6 Basophil % 1.1 % 0-2 Nucleated Red Blood Cells % 0 Basic Metabolic Panel 01/01/2018 Sodium 138 mmol/L 135-145 Potassium 4.8 mmol/L 3.5-5.0 Chloride 106 mmol/L 101-111 Co2 Carbon Dioxide 26 mmol/L 22-32 Anion Gap 6 mmol/L 2-11 Glucose 104 mg/dL High 70-100 Blood Urea Nitrogen 17 mg/dL 6-24 Creatinine 0.88 mg/dL 0.51-0.95 BUN/Creatinine Ratio 19.3 8-20 Calcium 9.2 mg/dL 8.6-10.3 Egfr Non- 70.1 >60 Egfr 90.2 >60 1 Laboratory test finding 01/01/2018 Magnesium 2.0 mg/dL 1.9-2.7 TSH (Thyroid Stim Horm) 1.44 mcIU/mL 0.34-5.60 Basic Metabolic Panel 07/04/2017 Sodium 136 mmol/L 133-145 Potassium 3.5 mmol/L 3.5-5.0 Chloride 105 mmol/L 101-111 Co2 Carbon Dioxide 24 mmol/L 22-32 Anion Gap 7 mmol/L 2-11 Glucose 86 mg/dL 70-100 Blood Urea Nitrogen 13 mg/dL 6-24 Creatinine 0.80 mg/dL 0.51-0.95 BUN/Creatinine Ratio 16.3 8-20 Calcium 9.2 mg/dL 8.6-10.3 Egfr Non- 78.7 >60 Egfr 101.2 >60 2 CBC Auto Diff 07/04/2017 White Blood Count 7.3 10^3/uL 3.5-10.8 Red Blood Count 4.48 10^6/uL 4.0-5.4 Hemoglobin 13.9 g/dL 12.0-16.0 Hematocrit 41 % 35-47 Mean Corpuscular Volume 92 fL 80-97 Mean Corpuscular Hemoglobin 31 pg 27-31 Mean Corpuscular HGB Conc 34 g/dL 31-36 Red Cell Distribution Width 13 % 10.5-15 Platelet Count 244 10^3/uL 150-450 Mean Platelet Volume 9 um3 7.4-10.4 Abs Neutrophils 5.7 10^3/uL 1.5-7.7 Abs Lymphocytes 1.0 10^3/uL 1.0-4.8 Abs Monocytes 0.4 10^3/uL 0-0.8 Abs Eosinophils 0.1 10^3/uL 0-0.6 Abs Basophils 0.1 10^3/uL 0-0.2 Abs Nucleated RBC 0.01 10^3/uL Granulocyte % 78.4 % 38-83 Lymphocyte % 13.2 % Low 25-47 Monocyte % 5.8 % 1-9 Eosinophil % 0.9 % 0-6 Basophil % 1.7 % 0-2 Nucleated Red Blood Cells % 0.1 Laboratory test finding 04/16/2017 Erythrocyte Sed Rate 17 mm/Hr High 0- 14 Lyme Disease Serology Negative Negative 3 Rheumatoid Factor <15 IU/mL <15 4 Connective Tissue Panel 04/16/2017 Anti-Nuclear Antibody 0.2 U 5 Cyclic Citrullinated Peptide <15.6 U 6 Interpretation See Comment 7 Laboratory test finding 04/16/2017 Creatine Kinase(CK) 70 U/L 10-223 C Reactive Protein 2.57 mg/L < 5.00 8 Comp Metabolic Panel 04/16/2017 Sodium 137 mmol/L 133-145 Potassium 4.0 mmol/L 3.5-5.0 Chloride 104 mmol/L 101-111 Co2 Carbon Dioxide 29 mmol/L 22-32 Anion Gap 4 mmol/L 2-11 Glucose 79 mg/dL 70-100 Blood Urea Nitrogen 16 mg/dL 6-24 Creatinine 0.96 mg/dL High 0.51-0.95 BUN/Creatinine Ratio 16.7 8-20 Calcium 9.4 mg/dL 8.6-10.3 Total Protein 7.1 g/dL 6.4-8.9 Albumin 4.3 g/dL 3.2-5.2 Globulin 2.8 g/dL 2-4 Albumin/Globulin Ratio 1.5 1-3 Total Bilirubin 0.90 mg/dL 0.2-1.0 Alkaline Phosphatase 70 U/L 34-104 Alt 15 U/L 7-52 Ast 16 U/L 13-39 Egfr Non- 63.7 >60 Egfr 82.0 >60 9 CBC Auto Diff 04/16/2017 White Blood Count 7.8 10^3/uL 3.5-10.8 Red Blood Count 4.47 10^6/uL 4.0-5.4 Hemoglobin 13.6 g/dL 12.0-16.0 Hematocrit 41 % 35-47 Mean Corpuscular Volume 92 fL 80-97 Mean Corpuscular Hemoglobin 31 pg 27-31 Mean Corpuscular HGB Conc 33 g/dL 31-36 Red Cell Distribution Width 13 % 10.5-15 Platelet Count 294 10^3/uL 150-450 Mean Platelet Volume 9 um3 7.4-10.4 Abs Neutrophils 6.0 10^3/uL 1.5-7.7 Abs Lymphocytes 1.0 10^3/uL 1.0-4.8 Abs Monocytes 0.6 10^3/uL 0-0.8 Abs Eosinophils 0.1 10^3/uL 0-0.6 Abs Basophils 0.1 10^3/uL 0-0.2 Abs Nucleated RBC 0.01 10^3/uL Granulocyte % 77.5 % 38-83 Lymphocyte % 12.9 % Low 25-47 Monocyte % 7.6 % 1-9 Eosinophil % 1.2 % 0-6 Basophil % 0.8 % 0-2 Nucleated Red Blood Cells % 0.1 CBC Auto Diff 01/13/2017 White Blood Count 6.2 10^3/uL 3.5-10.8 Red Blood Count 4.38 10^6/uL 4.0-5.4 Hemoglobin 13.6 g/dL 12.0-16.0 Hematocrit 41 % 35-47 Mean Corpuscular Volume 94 fL 80-97 Mean Corpuscular Hemoglobin 31 pg 27-31 Mean Corpuscular HGB Conc 33 g/dL 31-36 Red Cell Distribution Width 13 % 10.5-15 Platelet Count 242 10^3/uL 150-450 Mean Platelet Volume 9 um3 7.4-10.4 Abs Neutrophils 4.7 10^3/uL 1.5-7.7 Abs Lymphocytes 0.9 10^3/uL Low 1.0-4.8 Abs Monocytes 0.4 10^3/uL 0-0.8 Abs Eosinophils 0.2 10^3/uL 0-0.6 Abs Basophils 0.1 10^3/uL 0-0.2 Abs Nucleated RBC 0 10^3/uL Granulocyte % 75.4 % 38-83 Lymphocyte % 14.2 % Low 25-47 Monocyte % 6.5 % 1-9 Eosinophil % 2.6 % 0-6 Basophil % 1.3 % 0-2 Nucleated Red Blood Cells % 0 Comp Metabolic Panel 01/13/2017 Sodium 136 mmol/L 133-145 Potassium 4.4 mmol/L 3.5-5.0 Chloride 105 mmol/L 101-111 Co2 Carbon Dioxide 27 mmol/L 22-32 Anion Gap 4 mmol/L 2-11 Glucose 86 mg/dL 70-100 Blood Urea Nitrogen 11 mg/dL 6-24 Creatinine 0.76 mg/dL 0.51-0.95 BUN/Creatinine Ratio 14.5 8-20 Calcium 9.1 mg/dL 8.6-10.3 Total Protein 6.6 g/dL 6.4-8.9 Albumin 4.0 g/dL 3.2-5.2 Globulin 2.6 g/dL 2-4 Albumin/Globulin Ratio 1.5 1-3 Total Bilirubin 0.80 mg/dL 0.2-1.0 Alkaline Phosphatase 75 U/L 34-104 Alt 14 U/L 7-52 Ast 17 U/L 13-39 Egfr Non- 83.5 >60 Egfr 107.3 >60 10 Lipid Profile (Trig/Chol/HDL) 01/13/2017 Triglycerides 46 mg/dL 11 Cholesterol 160 mg/dL 12 HDL Cholesterol 50.0 mg/dL 13 LDL Cholesterol 101 mg/dL 14 Comp Metabolic Panel 07/11/2016 Sodium 136 mmol/L 133-145 Potassium 3.9 mmol/L 3.5-5.0 Chloride 105 mmol/L 101-111 Co2 Carbon Dioxide 28 mmol/L 22-32 Anion Gap 3 mmol/L 2-11 Glucose 109 mg/dL High 70-100 Blood Urea Nitrogen 13 mg/dL 6-24 Creatinine 0.70 mg/dL 0.51-0.95 BUN/Creatinine Ratio 18.6 8-20 Calcium 9.1 mg/dL 8.6-10.3 Total Protein 6.5 g/dL 6.4-8.9 Albumin 4.0 g/dL 3.2-5.2 Globulin 2.5 g/dL 2-4 Albumin/Globulin Ratio 1.6 1-3 Total Bilirubin 1.10 mg/dL High 0.2-1.0 Alkaline Phosphatase 66 U/L 34-104 Alt 17 U/L 7-52 Ast 19 U/L 13-39 Egfr Non- 92.2 >60 Egfr 118.6 >60 15 Laboratory test finding 07/11/2016 TSH (Thyroid Stim Horm) 1.78 mcIU/mL 0.34-5.60 CBC Auto Diff 07/11/2016 White Blood Count 7.1 10^3/uL 3.5-10.8 Red Blood Count 4.43 10^6/uL 4.0-5.4 Hemoglobin 13.4 g/dL 12.0-16.0 Hematocrit 40 % 35-47 Mean Corpuscular Volume 91 fL 80-97 Mean Corpuscular Hemoglobin 30 pg 27-31 Mean Corpuscular HGB Conc 33 g/dL 31-36 Red Cell Distribution Width 13 % 10.5-15 Platelet Count 237 10^3/uL 150-450 Mean Platelet Volume 10 um3 7.4-10.4 Abs Neutrophils 5.7 10^3/uL 1.5-7.7 Abs Lymphocytes 0.9 10^3/uL Low 1.0-4.8 Abs Monocytes 0.3 10^3/uL 0-0.8 Abs Eosinophils 0.1 10^3/uL 0-0.6 Abs Basophils 0.2 10^3/uL 0-0.2 Abs Nucleated RBC 0 10^3/uL Granulocyte % 80.0 % 38-83 Lymphocyte % 12.2 % Low 25-47 Monocyte % 4.2 % 1-9 Eosinophil % 1.1 % 0-6 Basophil % 2.5 % High 0-2 Nucleated Red Blood Cells % 0 Laboratory test finding 08/14/2015 Surgical Pathology SEE RESULT BELOW 16 Laboratory test finding 08/13/2015 Preshaped SEE RESULTS BELO 17, 18 [id number] <SEE NOTE> 1 Because ethnic data is not always readily available, this report includes an eGFR for both -Americans and non- Americans. The National Kidney Disease Education Program (NKDEP) does not endorse the use of the MDRD equation for patients that are not between the ages of 18 and 70, are , have extremes of body size, muscle mass, or nutritional status, or are non- or non-. According to the National Kidney Foundation, irrespective of diagnosis, the stage of the disease is based on the level of kidney function: Stage Description GFR(mL/min/1.73 m(2)) 1 Kidney damage with normal or decreased GFR 90 2 Kidney damage with mild decrease in GFR 60-89 3 Moderate decrease in GFR 30-59 4 Severe decrease in GFR 15-29 5 Kidney failure <15 (or dialysis) 2 Because ethnic data is not always readily available, this report includes an eGFR for both -Americans and non- Americans. The National Kidney Disease Education Program (NKDEP) does not endorse the use of the MDRD equation for patients that are not between the ages of 18 and 70, are , have extremes of body size, muscle mass, or nutritional status, or are non- or non-. According to the National Kidney Foundation, irrespective of diagnosis, the stage of the disease is based on the level of kidney function: Stage Description GFR(mL/min/1.73 m(2)) 1 Kidney damage with normal or decreased GFR 90 2 Kidney damage with mild decrease in GFR 60-89 3 Moderate decrease in GFR 30-59 4 Severe decrease in GFR 15-29 5 Kidney failure <15 (or dialysis) 3 Serologic response to B. burgdorferi infection is not detected, but cannot rule out early infection during which low or undetectable antibody levels to B. burgdorferi may be present. If clinically indicated, a new serum specimen should be submitted in 7-14 days. Test Performed by: [facility] [address] [place] [address] 4 Test Performed by: [facility] [address] [place] [address] 5 REFERENCE VALUE <=1.0 (Negative) 6 REFERENCE VALUE <20.0 (Negative) 7 Tests for antibodies to dsDNA and CANDELARIO antigens are not performed automatically unless the JESUS result is > or= 3.0 U. Studies performed at [facility] indicate that positive JESUS results <3.0 U are rarely accompanied by positive second order tests. Test Performed by: [facility] [address] [place] [address] 8 Acute inflammation: >10.00 9 Because ethnic data is not always readily available, this report includes an eGFR for both -Americans and non- Americans. The National Kidney Disease Education Program (NKDEP) does not endorse the use of the MDRD equation for patients that are not between the ages of 18 and 70, are , have extremes of body size, muscle mass, or nutritional status, or are non- or non-. According to the National Kidney Foundation, irrespective of diagnosis, the stage of the disease is based on the level of kidney function: Stage Description GFR(mL/min/1.73 m(2)) 1 Kidney damage with normal or decreased GFR 90 2 Kidney damage with mild decrease in GFR 60-89 3 Moderate decrease in GFR 30-59 4 Severe decrease in GFR 15-29 5 Kidney failure <15 (or dialysis) 10 Because ethnic data is not always readily available, this report includes an eGFR for both -Americans and non- Americans. The National Kidney Disease Education Program (NKDEP) does not endorse the use of the MDRD equation for patients that are not between the ages of 18 and 70, are , have extremes of body size, muscle mass, or nutritional status, or are non- or non-. According to the National Kidney Foundation, irrespective of diagnosis, the stage of the disease is based on the level of kidney function: Stage Description GFR(mL/min/1.73 m(2)) 1 Kidney damage with normal or decreased GFR 90 2 Kidney damage with mild decrease in GFR 60-89 3 Moderate decrease in GFR 30-59 4 Severe decrease in GFR 15-29 5 Kidney failure <15 (or dialysis) 11 Desirable <150 Borderline high 150-199 High 200-499 Very High >500 12 Desirable <200 Borderline high 200-239 High >239 13 Low <40 Desirable: 40-60 High: >60 14 Desirable: <100 mg/dL Near Optimal: 100-129 mg/dL Borderline High: 130-159 mg/dL High: 160-189 mg/dL Very High: >189 mg/dL 15 Because ethnic data is not always readily available, this report includes an eGFR for both -Americans and non- Americans. The National Kidney Disease Education Program (NKDEP) does not endorse the use of the MDRD equation for patients that are not between the ages of 18 and 70, are , have extremes of body size, muscle mass, or nutritional status, or are non- or non-. According to the National Kidney Foundation, irrespective of diagnosis, the stage of the disease is based on the level of kidney function: Stage Description GFR(mL/min/1.73 m(2)) 1 Kidney damage with normal or decreased GFR 90 2 Kidney damage with mild decrease in GFR 60-89 3 Moderate decrease in GFR 30-59 4 Severe decrease in GFR 15-29 5 Kidney failure <15 (or dialysis) 16 SEE RESULT BELOW Name: BEVERLY WALLIS : [address]: Dara Schroeder MD Acct: [id number] Unit: [id number] AGE: 39 Location: [facility] Re08/14/15 SEX: F Status: REG 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 PRE-OPERATIVE DIAGNOSIS Sprain of anterior cruciate ligament right knee GROSS DESCRIPTION The specimen is received in formalin labeled, Right Knee Shavings, and consists of a 2.0 x 2.0 x 0.4 cm aggregate of yellow and white tissue fragments. Entirely submitted, one cassette. Signed (signature on file) Oscar Womack MD [id number] END OF REPORT * ML=Testing performed at Main Lab DEPARTMENT OF PATHOLOGY, [address] [place] [address] Oscar Womack M.D. Director [facility] # [id number] 17 SPRAIN OF ANTERIOR CRUCIATE LIGAMENT OF RIGHT KNEE 18 SEE RESULTS BELOW [id number] PRESHAPED BTB TRANSFUSED 08/14/15 0700 Procedures Date CPT Code Description Status 01/06/2018 61028 Holter Monitor Review (24 hr)dr review & interp only Completed 12/30/2017 95160 ECG Monitor/Recording W/Visual Superimposition Scanning Completed 09/29/2017 57332 Arthroscopy Shoulder,W/Rotator Cuff Repair Completed 09/29/2017 35722 Arthroscopy Shoulder,W/Rotator Cuff Repair Completed 07/07/2017 02089 Arthroscopy Biceps Tenodesis Completed 07/07/2017 12094 Arthroscopy Shoulder,W/Rotator Cuff Repair Completed 07/07/2017 93684 Arthroscopy,Shoulder Decompression Of Subacromial Space Completed W/Acromio 07/07/2017 72177 Arthroscopy Shoulder Debridement Extensive Completed 06/23/2017 06223 EKG Tracing & Interpretation Completed 05/09/2017 91906 Inject/Drain Joint/Bursa Major W/O US Completed 01/29/2017 Mammogram Completed 07/16/2016 37374 Holter Monitor Review (24 hr)dr review & interp only Completed 07/11/2016 69896 ECG Monitor/Recording W/Visual Superimposition Scanning Completed 07/10/2016 18688 EKG Tracing & Interpretation Completed 08/14/2015 52233 Arthroscopy,Knee,ACL Reconstruction Completed 08/14/2015 62224 Arthroscopy,Knee,ACL Reconstruction Completed 08/14/2015 31869 Arthroscopy,Knee,Meniscectomy Medial Or Lateral Completed Encounters Type Date Location Provider CPT E/M Dx Office Visit 01/22/2018 [facility] Venancio Rand M.D. 56199 G89.4 1:00p Of Janet R20.8 M35.7 Office Visit 12/30/2017 2:30p [facility] [place] [address] M19.172 [facility] Office Visit 12/26/2017 3:40p [facility] [place] [address] R03.0 - [place] R00.2 Office Visit 11/17/2017 2:40p [facility] [place] [address] M25.50 [place] M79.1 Office Visit 09/16/2017 1:00p [facility] [place] [address] S46.012D C.M[facility] Office Visit 06/23/2017 11:00a [facility] [place] [address] Z01.818 - [place] S46.102A G89.29 Office Visit 05/27/2017 8:45a [facility] [place] [address] S46.012D C.M.A. S46.102A G56.22 Office Visit 05/09/2017 10:45a [facility] [place] [address] M25.512 C.M[facility] M75.42 S46.102A M75.22 Office Visit 05/09/2017 9:20a [facility] [place] [address] M25.512 [place] M79.602 Office Visit 04/16/2017 2:00p [facility] [place] [address] M79.602 [place] M25.559 M54.5 M79.1 R20.8 Office Visit 01/13/2017 9:00a [facility] [place] [address] Z00.00 [place] S81.801A Z13.220 Z13.1 Z12.31 Office Visit 08/07/2016 9:20a [facility] [place] [address] J06.9 [place] B35.1 Office Visit 07/10/2016 4:00p [facility] [place] [address] R00.2 [place] J01.90 Office Visit 12/07/2015 2:00p [facility] Internal Medicine Melvin Browning, 24744 M25.512 - Magalie Jewell M54.2 M25.512 M54.2 Office Visit 06/05/2015 2:30p [facility] [place] [address] S83.511D C.M.A. M79.7 Office Visit 05/17/2015 2:30p [facility] Of Alejandrina Burns M.D. 85238 M25.461 C.M.A. M25.561 S83.281A Office Visit 05/10/2015 2:40p [facility] [place] [address] M79.7 Magalie H81.399 Office Visit 04/14/2015 1:00p [facility] Alejandrina Burns M.D. 20728 M22.01 C.M.A. Office Visit 03/24/2015 2:00p [facility] [place] [address] 729.1 Magalie 719.46 Office Visit 03/20/2015 11:30a [facility] Alejandrina Burns M.D. 03503 836.3 C.M.A. 719.46 Office Visit 06/27/2013 1:08p [facility], Ashley Izquierdo, 00581 595.0 Hospitalists MJames 724.2 Office Visit 06/25/2013 1:07p [facility], Ashley Izquierdo, 81338 724.2 Hospitalists M.DBel 595.0 Plan of Care Future Appointment(s):02/04/2018 4:00 pm - Tom Dobson NP at [facility] Internal Medicine [facility]03/31/2018 11:20 am - Venancio Rand M.D. at [facility]02/24/2018 1:15 pm - Dara Schroeder MD at [facility]
[2018-03-03 16:16] VITALS: BP 148/97
[2018-03-03] MEDS ORDERED: Tetan/Diph/Pertus SYR(Tdap)* 0.5 ML SYR(BOOSTRIX) use SYR IM ONE (16:29)
--- NOTE | 2018-03-03 16:29 | UC ---
Skin Complaint HPI - HPI Summary HPI Summary: Pt c/o of puncture wound to left hand after working with chicken wire at [employer]. Pt states the end of chicken wire punctured skin and "went in my skin ~ 1/2 inch". Unsure last tetanus, and now states at wound site is increasingly red, swollen and tender. - History of Current Complaint Chief Complaint: UCSkin Time Seen by Provider: 03/03/18 16:23 Stated Complaint: LEFT HAND SKIN COMPLAINT Hx Obtained From: Patient Hx Last Menstrual Period: Mirena ?: No Onset/Duration: Sudden Onset - puncture wound, Gradual Onset - erythema, tenderness at wound site, Lasting Days, Still Present, Worse Since - onset Skin Exposure Onset/Duration: Days Ago - 2 Timing: Constant Onset Severity: Mild Current Severity: Moderate Pain Intensity: 3 Location: Discrete, Hand (Left) Character: Swelling, Pain, Redness Aggravating Factor(s): Touch Alleviating Factor(s): Nothing Associated Signs & Symptoms: Positive: Tenderness - Allergy/Home Medications Allergies/Adverse Reactions: Allergies Allergy/AdvReac Type Severity Reaction Status Date / Time erythromycin base Allergy Severe GI Upset Verified 03/03/18 16:17 ether Allergy Severe Nausea And Verified 03/03/18 16:17 Vomiting phenazopyridine Allergy Severe Hives Verified 03/03/18 16:17 prochlorperazine Allergy Severe Altered Verified 03/03/18 16:17 Mental Status tizanidine Allergy Severe Hives Verified 03/03/18 16:17 Adhesive Tape Allergy Blisters Verified 03/03/18 16:17 lactose Allergy GI Upset Verified 03/03/18 16:17 pregabalin Allergy See Comment Verified 03/03/18 16:17 ENVIRONMENT/SEASONAL Allergy ITCHY Uncoded 03/03/18 16:17 ALLERGIES WATERY EYES, SNEEZE, STUFFY WALNUTS Allergy GI Upset Uncoded 03/03/18 16:17 Review of Systems Constitutional: Negative Skin: Other - mild erythema and swelling Eyes: Negative ENT: Negative Respiratory: Negative Cardiovascular: Negative Gastrointestinal: Negative Genitourinary: Negative Motor: Decreased ROM - left index finger Neurovascular: Negative Musculoskeletal: Edema - left index finger, Neurological: Negative Psychological: Negative Is Patient Immunocompromised?: No All Other Systems Reviewed And Are Negative: Yes PMH/Surg Hx/FS Hx/Imm Hx Previously Healthy: Yes Other History Of: Negative For: Anticoagulant Therapy - Surgical History Surgical History: Yes Surgery Procedure, Year, and Place: LEFT ANKLE FRACTURE WITH REPAIR X 7 (WITH FUSION, PLATES AND SCREWS); [facility]. LEFT KNEE SCOPE X 2, [facility]. LAPAROSCOPIC CHOLECYSTECTOMY, [facility]. 07/2015 Rt KNEE - ACL REPLACEMENT. LEFT SHOULDER ROTATOR CUFF REPAIR AND BISCEPS REPAIR 06/2017 - Family History Known Family History: Positive: Cardiac Disease - Social History Occupation: Employed Full-time Lives: With Family Alcohol Use: Occasionally Alcohol Amount: 3 drinks per week Substance Use Type: Marijuana Substance Use Comment - Amount & Last Used: Medicinal Marijuana Smoking Status (MU): Never Smoked Tobacco Have You Smoked in the Last Year: Yes - marijuana - Immunization History Most Recent Influenza Vaccination: 2011 Most Recent Tetanus Shot: UNSURE Most Recent Pneumonia Vaccination: NEVER Physical Exam Triage Information Reviewed: Yes Appearance: Well-Appearing Vital Signs: Initial Vital Signs Temp 98.4 F 03/03/18 16:11 Pulse 64 03/03/18 16:11 Resp 16 03/03/18 16:11 BP 148/97 03/03/18 16:11 Pulse Ox 100 03/03/18 16:11 Vital Signs Reviewed: Yes Eye Exam: Normal ENT: Positive: Hearing grossly normal Dental Exam: Normal Neck exam: Normal Respiratory: Positive: No respiratory distress Musculoskeletal: Positive: ROM Limited @ - left index finger secondary to mild swelling, Edema @ - left index finger, mild Neurological Exam: Normal Psychological Exam: Normal Skin Exam: Other - erythema Course/Dx - Differential Diagnoses - Skin Complaint Differential Diagnoses: Cellulitis, MRSA - Diagnoses Provider Diagnoses: puncture wound. infected wound Discharge - Sign-Out/Discharge Documenting (check all that apply): Patient Departure - Discharge Plan Condition: Stable Disposition: HOME Prescriptions: Amoxicillin/Clavulanate TAB* [Augmentin TAB 500 mg*] 500 mg PO Q12H #20 tab Fluconazole 100 MG TAB* [Diflucan 100 MG TAB*] 100 mg PO DAILY #2 tab Patient Education Materials: Puncture Wound (ED) Referrals: Jody Pennington MD [Primary Care Provider] - If Needed Additional Instructions: Per institutional requirements, I have reviewed the chart, however, I was not consulted specifically or made aware of this patient by the above midlevel provider. I did not personally evaluate, interact with , or disposition this patient. - Billing Disposition and Condition Condition: STABLE Disposition: Home
== END 2018-03-03 16:42 | disposition home or self-care (01) ==
LOC: UCCORT 15:43
DX: S61.432A Puncture wound without foreign body of left hand, initial encounter (principal); L08.9 Local infection of the skin and subcutaneous tissue, unspecified; W26.8XXA Contact with other sharp object(s), not elsewhere classified, initial encounter; Y93.89 Activity, other specified; Y92.9 Unspecified place or not applicable; Z88.6 Allergy status to analgesic agent; Z88.1 Allergy status to other antibiotic agents; Z88.8 Allergy status to other drugs, medicaments and biological substances
CPT/HCPCS: 90715; 96372; 99212; G0463

== ENCOUNTER 2018-04-13 10:23 | Day surgery (SDC) | payer OTHER ==
[~2018-04-13 10:23] MED LIST changes: -Dexamethasone IV* 4 MG/ML 1 ML (4 MG) IV SLOW PU ONE; +Dexamethasone TAB* 4 MG ONE; +Dexamethasone TAB* 4 MG PO ONE; +DiMENhydriNATE IV* 50 MG/ML VIAL IV PUSH PRN; +Famotidine IV* 10 MG/ML 2 ML (20 mg) ONE; +Morphine INJ* 2 MG/ML 1 ML SYRINGE (TWO MG - NEW SYRINGE VERSION) IV PRN; +Naloxone* 0.4 MG/ML 1 ML VIAL IV PRN; +Ondansetron INJ* 2 MG/ML VIAL ONE; +Ondansetron ODT TAB* 4 MG ONE; +Scopolamine 1.5 mg* PATCH TRANSDERM PRN; +fentaNYL* 50 MCG/ML 2 ML VIAL (100 MCG VIAL) IV PRN; +oxyCODONE/Acetamin 5/325 MG* TAB PO PRN
[2018-04-13] MEDS ORDERED: ceFAZolin 2 GM in NS PREMIX(*) 2 GM/100 ML BAG IVPB ONE (10:25)
[2018-04-13] MEDS ORDERED: KETAMINE HCL* 50 MG/ML 10 ML VIAL ONE (11:44)
[2018-04-13] MEDS ORDERED: fentaNYL* 50 MCG/ML 2 ML VIAL (100 MCG VIAL) ONE (11:44)
[2018-04-13] MEDS ORDERED: Midazolam* 1 MG/ML 5 ML VIAL (5 MG) ONE (11:44)
[2018-04-13] MEDS ORDERED: ROPIVACAINE 5 MG/ML 30 ML BTL (0.5%) ONE (13:46)
[2018-04-13] MEDS ORDERED: Morphine INJ* 10 MG/ML 1 ML CARPUJECT ONE (14:01)
[2018-04-13] MEDS ORDERED: Lidocaine 2% PF * 5 ML VIAL ONE (14:05)
[2018-04-13] MEDS ORDERED: Propofol* 10 MG/ML 20 ML BTL IV PUSH ONE (14:05)
[2018-04-13] MEDS ORDERED: Ketorolac INJ* 30 MG/ML 1 ML VIAL ONE (14:05)
[2018-04-13] MEDS ORDERED: Labetalol IV* 5 MG/ML 20 ML VIAL ONE (14:05)
[2018-04-13] MEDS ORDERED: oxyCODONE/Acetamin 5/325 MG* TAB ONE (15:06)
[2018-04-13 15:42] VITALS: BP 142/72
--- NOTE | 2018-04-14 03:15 | OP ---
DATE OF OPERATION: 04/13/18 - [facility] DATE OF : 73 SURGEON: Dara Schroeder MD LEATHER ROLLER: ALEXA Bermeo. An health care assistant was needed for the entirety of the case to help with positioning, retraction and was utilized throughout all portions of the case. PRE-OP DIAGNOSIS: Right shoulder rotator cuff tear with full thickness tear of the supraspinatus tendon with bicipital tendonitis. POST-OP DIAGNOSIS: Right shoulder rotator cuff tear with full thickness tear of the supraspinatus tendon with bicipital tendonitis. OPERATIVE PROCEDURE: 1. Right shoulder arthroscopy with extensive glenohumeral debridement. 2. Subacromial decompression with acromioplasty. 3. Open biceps tenodesis. 4. Rotator cuff repair, double row fashion. COMPLICATIONS: None. ESTIMATED BLOOD LOSS: Minimal. IMPLANTS USED: One Sherman and Nephew 4.75 Healicoil, one MultiFix and one 2.8 mm Q- FIX. INDICATIONS: Beverly Wallis is a 42-year-old female who has had persistent right shoulder pain with past history of a left shoulder rotator cuff tear that was treated with arthroscopic surgery. She did well. The right shoulder was bothering her. She has failed conservative management and elected to proceed with surgical treatment. Risks and benefits were discussed in length which include but not limited to bleeding, infection, damage to nerves, vessels, surrounding structures, wound nonhealing, persistent pain. DESCRIPTION OF PROCEDURE: The patient was greeted in the preoperative area by the attending surgeon. Correct extremity was marked and the consent was confirmed. The patient was brought back to the operating suite, she was was placed in supine position on operating table. She then underwent interscalene nerve block by the anesthesiologist after which she was brought back to the operating suite. She was placed in supine position on operating table. She then underwent general anesthesia and LMA intubation after which she was placed in the left lateral decubitus position. All bony prominences were patched. She was secured with peg board. An axillary roll was placed, the right arm was draped unsterile with 10 pounds of traction. Right shoulder was prepped and draped in usual sterile fashion beginning with chlorhexidine soap, scrub, and alcohol wipe and a final prep with ChloraPrep. After appropriate surgical pause indicating site, side, procedure, and administration of antibiotics, the standard postero-lateral portal was made sharply with 11-blade, scope was introduced into joint, joint was examined. There were grade 0 to 1 changes with small areas of grade 2 changes with fraying. The inferior recess was intact. Anterior, posterior, and superior labrum had some mild fraying. The biceps insertion while it was intact there was fraying and subluxation of the biceps from the hernandez. There was a full thickness tear at the supraspinatus tendon. The subscap was intact. There was abundant synovitis, erythema in the joint. The anterior portal was placed in outside-in fashion. The shaver was used to debride the anterior posterior superior labrum. The biceps were then tenotomized for later tenodesis. Attention was then directed to the subacromial space. With the scope in subacromial space, lateral port was made in outside-in fashion. Shaver was used to debride back the bursa that was present. The areas had small U- shaped full thickness tear of the supraspinatus tendon was identified. The undersurface of the acromion was skeletonized using electrocautery device. There was a small anterolateral spur which was debrided back using 4-0 oval deepak. Attention was then directed to the rotator cuff. With the rotator cuff exam, there was a full thickness tear. The cuff was debrided back to stable layer. The 4-0 oval deepak and the rasp were used to gently decorticate the greater tuberosity after which this was done, through a separate stab incision a 4.75 Healicoil was placed, the bone quality was very good. The awl was then used to make small micro-fracture to extra points of bleeding healing. The sutures were then passed through the tendon in a horizontal mattress configuration, then tied down using arthroscopic knot tying technique. Sutures were then passed through a second anchor, the MultiFix anchor for a lateral row fixation. This helped to compress the cuff. The final images were obtained. The shoulder was taken through range of motion. Attention was directed to biceps. The bed was air-planed to the right side. The anterior aspect of the shoulder was prepped again using ChloraPrep. A 15-blade was used to make an incision in line with the biceps tendon. The soft tissues were carefully dissected to expose the pec fascia and the remainder of the dissection was done bluntly. The biceps was brought through the wound. The groove was prepared in usual fashion with electrocautery device, red ball rasp and osteotome, it was then drilled unicortically. Q-FIX was deployed with excellent purchase. Sutures were the passed in the tendon in a Jonh-Manjit type configuration. The excess stump was then excised. The biceps were slid back to the wound. The wounds were then copiously irrigated with sterile saline. The anterior wound was closed in layers with 2-0 Vicryl and 3-0 Monocryl. The portals were closed with 3-0 nylon. Sterile dressings were applied. Cryo/Cuff and UltraSling were applied. She was awoken from anesthesia and transferred to PACU in stable condition. POSTOPERATIVE PLAN: She will be nonweightbearing. She will be in a sling for 6 weeks. She will be discharged on pain medications and antibiotics. I will see the patient back in 10 to 14 days. [id number]/CPS #: [id number] MTDD
[2018-04-16] MEDS ORDERED: Scopolamine PATCH Remove* 1 NOTE MISC PATCH OFF ONE (05:47)
== END 2018-04-13 15:43 | disposition home or self-care (01) ==
LOC: OREAST 10:23
PROVIDERS: ATTEND Orthopaedic Surgery
DX: S46.011A Strain of muscle(s) and tendon(s) of the rotator cuff of right shoulder, initial encounter (principal); M75.21 Bicipital tendinitis, right shoulder; X58.XXXA Exposure to other specified factors, initial encounter; Y92.9 Unspecified place or not applicable; K21.9 Gastro-esophageal reflux disease without esophagitis; M79.7 Fibromyalgia; F41.9 Anxiety disorder, unspecified; G89.18 Other acute postprocedural pain
CPT/HCPCS: 81025; 88304; A9270-GY; C1713; C1776; J0690; J1885; J2250; J2270; J2704; J2795; J3010; J8540

== ENCOUNTER 2018-10-13 15:50 | Emergency (ER) | payer OTHER ==
--- OUTSIDE RECORDS SUMMARY | 2018-10-13 15:56 | XMS REPORT | Continuity of Care Document ---
:1975 External Reference #:[id number] Author Name Teresa Coleman Care Team Providers Name Role Phone Anny Gay PA Primary Care Physician Unavailable Payers Date Identification Numbers Payment Provider Subscriber Policy Number: [id number] Ajay Dawn Group Number: [id number] [address] PayID: [id number] [place] [address] Effective: 2015 Policy Number: [id number] No Fault Beverly Dawn Onset: 2015 PayID: [id number] Advance Directives Description No Information Available Problems Date Description Provider Status Onset: 03/28/2015 [...] of Dara Schroeder MD Active right knee, subsequent encounter Onset: 05/27/2017 Injury of shoulder region Dara Schroeder MD Active Onset: 05/27/2017 Strain of muscle(s) and tendon(s) of the Dara Schroeder MD Active rotator cuff of left shoulder, subsequent encounter Onset: 05/27/2017 Lesion of ulnar nerve Dara Schroeder MD Active Onset: 10/07/2018 Enthesopathy of ankle AND/OR tarsus Christian Aguilar MD Active Onset: 10/07/2018 Localized, 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 Onset: 03/12/2018 Strain of muscle(s) and tendon(s) of the Ehb MD Alexandre Active rotator cuff of right shoulder, subsequent encounter Family History Date Family Member(s) Observation Comments General Diabetes General Cancer Father Diabetes Father Bipolar Disorder Father Hypertension Father Alzheimer's Disease Mother due to Thyroid Cancer () Mother Hypertension Mother Thyroid Disease Mother Obesity Siblings 3 twin prior to , has 2 sisters Social History Type Date Description Comments Sex Unknown Marital Status Significant Other Occupation [employer] Tobacco Use Start: Unknown Never Smoked Cigarettes Smoking Status Reviewed: 10/07/18 Never Smoked Cigarettes ETOH Use Occasionally consumes alcohol Tobacco Use Start: Unknown Patient has never smoked Recreational Drug Use Sporadically uses Patient has a Marijuana medical marijuana Rx card Exercise Type/Frequency Exercises regularly Walking Allergies, Adverse Reactions, Alerts Date Description Reaction Status Severity Comments 03/20/2015 Zanaflex Active 03/20/2015 Copaxone Active 03/20/2015 Ethyol Active 03/24/2015 Compazine Active 03/24/2015 Erythromycin Active 03/24/2015 Lyrica Convulsions Active 03/24/2015 Gabapentin Hives Active 03/24/2015 Pyridium Active 03/30/2015 Voltaren Active Medications Medication Date Status Form Strength Qnty SIG Indications Ordering Provider Tramadol HCL 05/15/ Active Tablets 50mg 20tabs 1 tablets b 2017 every 12 Yaseen, hours as MD needed Sulfasalazine 03/31/ Active Tablets 500mg 60tabs take one S83.511D Venancio 2017 capsule/tab jennifer Rand M.DBel by mouth twice daily ongoing, monitor for rash Methocarbamol 02/20/ Active Tablets 500mg 60tabs take one Zaneb 2018 tab twice a Yaseen, day as MD needed B12 Fast 02/08/ Active Tablets 5000mcg 90tabs sublingual Venancio Dissolve 2018 Dispers daily Fanta Rand Duloxetine HCL 09/17/ Active Caps DR 30mg 30caps 1 by mouth Tom 2018 Part every day LOLLY Dobson Hydroxyzine 09/10/ Active Capsules 25mg 60caps 1-2 caps by Tom Pamoate 2018 mouth three LOLLY Dobson times a day as needed for anxiety Cetirizine HCL 12/24/ Active Tablets 10mg 30tabs Take 1 Tom 2017 Tablet By LOLLY Dobson Mouth Once Daily Valacyclovir 05/19/ Active Tablets 1gm 20tabs 1 every day Tom HCL 2016 for 5 days LOLLY Dobson , repeat as needed Sumatriptan 09/12/ Active Tablets 100mg 9tabs Take One Tom Succinate 2016 Tablet By LOLLY Dobson Mouth AT Onset Of Headache Omeprazole 06/19/ Active Capsules 20mg 30caps Take One Tom 2014 DR Capsule By LOLLY Dobson Mouth Once Daily Duloxetine HCL 05/10/ Active Caps DR 60mg 30caps take one M60.80 Tom 2014 Part capsule by LOLLY Dobson mouth once daily F41.9 Fluticasone 05/10/2015 Active Suspension 50mcg/Act 16units Use Two Tom Propionate [place](S) In LOLLY Dobson Each Nostril Once Daily Percocet Active Tablets 7.5-325mg 1 by mouth Unknown every 6 hours as needed pain Tramadol HCL 04/23/2018 Hx Tablets 50mg 60tabs 1-2 tablets S Zaneb - every 6 hours 4 , 04/23/2018 as needed 6 MD . 0 1 1 D Tramadol HCL 04/23/2018 Hx Tablets 50mg 60tabs 1-2 tablets S Zaneb - every 6 hours 4 , 05/15/2018 as needed 6 MD . 0 1 1 D Oxycodone HCL 04/13/2018 Hx Tablets 5mg 30tabs 1 tabs by Zaneb - mouth every , 04/14/2018 4-6 hours as MD needed Keflex 04/13/2018 Hx Capsules 500mg 12caps take 1 tab by Zaneb - mouth four , 05/21/2018 times a day x MD 3 days Oxycodone HCL 10/02/2017 Hx Tablets 10mg 30tabs take 1/2-1 tab Zaneb - every 6-8 , 12/24/2017 hours as MD needed pain Oxycodone HCL 09/29/2017 Hx Tablets 5mg 30tabs 1-2 tabs by Zaneb - mouth every , 10/30/2017 4-6 hours as MD needed post op pain Lovenox 09/29/2017 Hx Solution 40mg/0.4ML 10inj 1- 40 mg Zaneb - injection Ya, 12/24/2017 subcutaneously MD daily x 10 days. [...] 1 tab by Zaneb - mouth four se, 09/25/2017 times a day x MD 3 days. Do not take before surgery Lovenox 07/05/2017 Hx Solution 40mg/0.4ML 7inj 1- 40 mg Zaneb - injection , 09/25/2017 subcutaneously MD daily x 7 days. please dispense appropriate amount. do not take before surgery Oxycodone HCL 06/26/2017 Hx Tablets 5mg 28tabs 1 tab by mouth Zaneb - every 6 hours , 09/25/2017 as needed for MD pain. Proair HFA 11/21/2016 Hx Aerosol 108(90Base 8.5units take 1-2 puffs Tom - ) mcg/Act every 4-6 Olya, [employer] 06/30/2017 hours as needed for shortness of breath. 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 6 . 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 remove . every 7 days 1 with alcohol Fluconazole 07/19/2016 Hx Tablets 150mg 2tabs one by mouth [facility] 07/25[facility]2016 3 days as N.P. needed Benzonatate 07/10/2016 Hx Capsules 200mg 30caps one by mouth J Otm - three times 0 LOLLY Dobson 01/13/2017 daily as 1 needed for . cough 9 0 Amoxicillin/Cl 07/10/2016 Hx Tablets 875-125mg 20tabs take one J Tom avulanate - tablet q12 0 LOLLY Dobson Potassium 07/20/2016 hours for 10 1 days . 9 0 ACL Functional 09/28/2015 Hx 1units dispo 1 S Zaneb Brace - , 01/13/2017 3 MD . 5 1 1 [...] 06/20/2015 Hx Tablets 0.5mg 90tabs take three Otm - tablets by LOLLY Dobson 08/27/2016 mouth every day Methocarbamol 06/20/2015 Hx Tablets 750mg 60tabs take one to Zaneb - two tablets by Alexandre, 02/20/2018 mouth every 8 MD hours as needed for muscle spasm Requip 06/19/2015 Hx Tablets 5mg 90tabs 3 tabs by Tom - mouth daily LOLLY Dobson 06/20/2015 Diclofenac 06/05/[address] 75mg 60tabs Take 1 Tablet S Zaneb Sodium - By Mouth Twice 8 , 03/31/2018 Daily With 3 MD Food . 5 1 1 D Naproxen 04/04/2015 Hx Tablets 500mg 60tabs Take One Ruslan - Tablet By Pamela Aleman, 06/23/2017 Mouth Twice M.DBel,FACP Daily With Food as Needed For Pain [...] Triamcinolone Injection Marisol (Kenalog) 2016 WESLEY Chamberlain Immunizations Description No Information Available Vital Signs Date Vital Result Comment 10/07/2018 3:14pm Height 62.5 inches 5'2.50" Heart Rate 76 /min BP Systolic Sitting 108 mmHg BP Diastolic Sitting 70 mmHg Body Temperature 97.6 F Pain Level 5 08/04/2018 1:32pm Height 62.5 inches 5'2.50" Weight 174.00 lb BP Systolic 114 mmHg BP Diastolic 70 mmHg Respiratory Rate 18 /min Pain Level 2 BMI (Body Mass Index) 31.3 kg/m2 06/23/2018 1:05pm Height 62.5 inches 5'2.50" Weight 174.00 lb Heart Rate 76 /min BP Systolic 122 mmHg BP Diastolic 80 mmHg Pain Level 4 BMI (Body Mass Index) 31.3 kg/m2 05/22/2018 9:52am Height 62.5 inches 5'2.50" Weight 173.00 lb BP Systolic 126 mmHg BP Diastolic 86 mmHg Body Temperature 98.2 F Pain Level 4 BMI (Body Mass Index) 31.1 kg/m2 05/18/2018 11:13am Height 61.5 inches 5'1.50" Weight 175.00 lb Heart Rate 82 /min BP Systolic Sitting 138 mmHg BP Diastolic Sitting 89 mmHg Respiratory Rate 14 /min Pain Level 4 BMI (Body Mass Index) 32.5 kg/m2 04/23/2018 1:50pm Height 61.5 inches 5'1.50" Weight 178.00 lb BP Systolic 136 mmHg BP Diastolic 70 mmHg Respiratory Rate 18 /min Body Temperature 98.5 F Pain Level 6 BMI (Body Mass Index) 33.1 kg/m2 04/01/2018 8:30am Height 61.5 inches 5'1.50" Weight 178.00 lb Heart Rate 76 /min BP Systolic Sitting 138 mmHg BP Diastolic Sitting 100 mmHg Respiratory Rate 14 /min O2 % BldC Oximetry 99 % BMI (Body Mass Index) 33.1 kg/m2 Neck Circumference in inches 14 03/31/2018 11:42am Height 61.5 inches 5'1.50" Weight 174.25 lb Heart Rate 78 /min BP Systolic 128 mmHg BP Diastolic 80 mmHg Pain Level 6 O2 % BldC Oximetry 96 % BMI (Body Mass Index) 32.4 kg/m2 03/26/2018 1:04pm Height 61.5 inches 5'1.50" Weight 181.00 lb BP Systolic 126 mmHg BP Diastolic 78 mmHg Respiratory Rate 18 /min Pain Level 4 BMI (Body Mass Index) 33.6 kg/m2 03/12/2018 1:58pm Height 61.5 inches 5'1.50" Weight 181.00 lb BP Systolic 122 mmHg BP Diastolic 78 mmHg Respiratory Rate 18 /min Pain Level 1 BMI (Body Mass Index) 33.6 kg/m2 02/03/2018 1:47pm Height 61.5 inches 5'1.50" Weight 180.00 lb Heart Rate 92 /min Respiratory Rate 16 /min Body Temperature 97.1 F BMI (Body Mass Index) 33.5 kg/m2 01/22/2018 12:54pm Height 61.5 inches 5'1.50" Weight 180.00 lb Heart Rate 86 /min BP Systolic Sitting 127 mmHg BP Diastolic Sitting 80 mmHg Respiratory Rate 14 /min Pain Level 6 BMI (Body Mass Index) 33.5 kg/m2 12/30/2017 1:51pm Height 61.5 inches 5'1.50" Weight 179.00 lb Heart Rate 84 /min BP Systolic 132 mmHg BP Diastolic 80 mmHg Respiratory Rate 17 /min Body Temperature 95.3 F Pain Level 4 BMI (Body Mass Index) 33.3 kg/m2 12/26/2017 3:27pm Height 61.5 inches 5'1.50" Weight 178.50 lb Heart Rate 85 /min BP Systolic 135 mmHg BP Diastolic 83 mmHg O2 % BldC Oximetry 100 % BMI (Body Mass Index) 33.2 kg/m2 12/25/2017 1:28pm Height 61.5 inches 5'1.50" Weight 181.75 lb Heart Rate 72 /min BP Systolic 132 mmHg BP Diastolic 96 mmHg Respiratory Rate 16 /min Body Temperature 98.1 F Pain Level 0 BMI (Body Mass Index) 33.8 kg/m2 11/17/2017 2:32pm Weight 193.75 lb Heart Rate 82 /min BP Systolic 130 mmHg BP Diastolic 78 mmHg O2 % BldC Oximetry 98 % 11/13/2017 9:29am Height 61.5 inches 5'1.50" Weight 192.00 lb BP Systolic 132 mmHg BP Diastolic 84 mmHg Respiratory Rate 18 /min Body Temperature 97.6 F Pain Level 4 BMI (Body Mass Index) 35.7 kg/m2 10/09/2017 1:00pm Height 61.5 inches 5'1.50" Weight 192.00 lb BP Systolic 134 mmHg BP Diastolic 82 mmHg Respiratory Rate 20 /min Body Temperature 97.9 F Pain Level 4 BMI (Body Mass Index) 35.7 kg/m2 09/16/2017 1:03pm Height 61.5 inches 5'1.50" Heart Rate 79 /min BP Systolic 126 mmHg BP Diastolic 82 mmHg Respiratory Rate 16 /min Body Temperature 97.7 F Pain Level 5 08/29/2017 9:57am Height 61.5 inches 5'1.50" Weight 210.00 lb BP Systolic 130 mmHg BP Diastolic 74 mmHg Respiratory Rate 20 /min Pain Level 6 BMI (Body Mass Index) 39.0 kg/m2 08/07/2017 2:27pm Height 61.5 inches 5'1.50" Weight 210.00 lb BP Systolic 128 mmHg BP Diastolic 82 mmHg Respiratory Rate 20 /min Body Temperature 97.4 F Pain Level 2 BMI (Body Mass Index) 39.0 kg/m2 07/17/2017 10:10am Height 61.5 inches 5'1.50" Heart Rate 59 /min BP Systolic Standing 140 mmHg BP Diastolic Standing 77 mmHg Respiratory Rate 20 /min Body Temperature 97.5 F Pain Level 1 06/26/2017 8:51am Height 61.5 inches 5'1.50" Weight 210.00 lb Heart Rate 84 /min BP Systolic 132 mmHg BP Diastolic 78 mmHg Respiratory Rate 14 /min Body Temperature 98.1 F Pain Level 5 BMI (Body Mass Index) 39.0 kg/m2 06/23/2017 11:21am Height 61.5 inches 5'1.50" Weight 216.00 lb Heart Rate 75 /min BP Systolic Sitting 152 mmHg BP Diastolic Sitting 98 mmHg Body Temperature 99.1 F O2 % BldC Oximetry 97 % BMI (Body Mass Index) 40.1 kg/m2 05/27/2017 8:50am Height 61 inches 5'1" Weight 216.00 lb BP Systolic 130 mmHg BP Diastolic 86 mmHg Respiratory Rate 20 /min Pain Level 6 BMI (Body Mass Index) 40.8 kg/m2 05/09/2017 9:12am Weight 216.00 lb Heart Rate 85 /min BP Systolic Sitting 142 mmHg BP Diastolic Sitting 88 mmHg Pain Level 7 L upper arm O2 % BldC Oximetry 99 % 04/16/2017 1:57pm Height 61 inches 5'1" Weight 209.00 lb Heart Rate 91 /min BP Systolic Sitting 128 mmHg BP Diastolic Sitting 88 mmHg Pain Level 6 L shoulder, hand O2 % BldC Oximetry 98 % BMI (Body Mass Index) 39.5 kg/m2 01/13/2017 8:54am Weight 207.75 lb Heart Rate 87 /min BP Systolic 124 mmHg BP Diastolic 78 mmHg Body Temperature 97.9 F O2 % BldC Oximetry 99 % 08/07/2016 9:30am Weight 209.00 lb with shoes Heart Rate 82 /min BP Systolic Sitting 130 mmHg BP Diastolic Sitting 100 mmHg Body Temperature 97.6 F O2 % BldC Oximetry 99 % 07/10/2016 4:08pm Weight 210.00 lb Heart Rate 84 /min BP Systolic 138 mmHg BP Diastolic 86 mmHg Body Temperature 98.2 F O2 % BldC Oximetry 98 % 12/07/2015 2:00pm Weight 213.00 lb Heart Rate 80 /min BP Systolic Sitting 130 mmHg BP Diastolic Sitting 81 mmHg Body Temperature 98.3 F 09/28/2015 10:29am Height 61 inches 5'1" Weight 200.00 lb Pain Level 0 BMI (Body Mass Index) 37.8 kg/m2 08/24/2015 11:08am Height 61 inches 5'1" Weight 200.00 lb Body Temperature 98.3 F BMI (Body Mass Index) 37.8 kg/m2 08/10/2015 9:59am Height 61 inches 5'1" Weight 200.00 lb Heart Rate 100 /min BP Systolic 141 mmHg BP Diastolic 91 mmHg BMI (Body Mass Index) 37.8 kg/m2 06/05/2015 2:10pm Height 61.5 inches 5'1.50" Weight 219.00 lb BMI (Body Mass Index) 40.7 kg/m2 05/17/2015 2:37pm Height 61.5 inches 5'1.50" Weight 219.00 lb Pain Level 7 BMI (Body Mass Index) 40.7 kg/m2 05/10/2015 2:32pm Height 61.5 inches 5'1.50" Weight 217.25 lb Heart Rate 109 /min BP Systolic Sitting 118 mmHg BP Diastolic Sitting 82 mmHg Body Temperature 97.9 F Pain Level 8 O2 % BldC Oximetry 98 % BMI (Body Mass Index) 40.4 kg/m2 04/14/2015 12:56pm Height 61.5 inches 5'1.50" Weight 219.00 lb Pain Level 7 BMI (Body Mass Index) 40.7 kg/m2 03/24/2015 1:58pm Height 61.5 inches 5'1.50" Weight 219.00 lb Heart Rate 86 /min BP Systolic Sitting 118 mmHg BP Diastolic Sitting 78 mmHg Body Temperature 98.5 F O2 % BldC Oximetry 97 % BMI (Body Mass Index) 40.7 kg/m2 03/20/2015 12:11pm Height 61 inches 5'1" Weight 200.00 lb Heart Rate 92 /min BP Systolic 130 mmHg BP Diastolic 80 mmHg BMI (Body Mass Index) 37.8 kg/m2 Results Test Date Facility Test Result H/L Range Note Laboratory test 04/13/2018 [facility] Surgical SEE RESULT 1 , [address] [place] [address] [phone] Laboratory test 02/04/2018 [facility] Creatine 67 U/L N 10- 223 finding [address]) [place] [address] [phone] Hla B27 02/04/2018 [facility] Hla B27 Negative [address] [place] [address] [phone] Hla B27 Interp See Comment 4 Vitamin B12 And 02/04/2018 [facility] Vitamin B12 250 pg/mL N 180-914 [address] [place] [address] [phone] Folic Acid (Folate) > 20.00 ng/mL >3.99 Laboratory test 02/04/2018 [facility] Erythrocyte Sed 17 mm/Hr High 0-14 finding [address] [place] [address] [phone] C Reactive Protein 2.19 mg/L N <8.01 Basic Metabolic Panel 01/01/2018 [facility] Sodium 138 mmol/L N 135-[address] [place] [address] [phone] Potassium 4.8 mmol/L N 3.5-5.0 Chloride 106 mmol/L N 101-111 Co2 Carbon Dioxide 26 mmol/L N 22-32 Anion Gap 6 mmol/L N 2-11 Glucose 104 mg/dL High 70-100 Blood Urea Nitrogen 17 mg/dL N 6-24 Creatinine 0.88 mg/dL N 0.51-0.95 BUN/Creatinine Ratio 19.3 N 8-20 Calcium 9.2 mg/dL N 8.6-10.3 Egfr Non- 70.1 >60 Egfr 90.2 >60 6 Laboratory test 01/01/2018 [facility] Magnesium 2.0 mg/dL N 1.9-2.[address] [place] [address] [phone] TSH (Thyroid Stim Horm) 1.44 mcIU/mL N 0.34-5.60 CBC Auto Diff 01/01/2018 [facility] White Blood 4.8 10^3/uL N 3.5-10.[address] [place] [address] [phone] Red Blood Count 4.06 10^6/uL N 4.00-5.40 Hemoglobin 12.7 g/dL N 12.0-16.0 Hematocrit 38 % N 35-47 Mean Corpuscular Volume 93 fL N 80-97 Mean Corpuscular Hemoglobin 31 pg N 27-31 Mean Corpuscular HGB Conc 34 g/dL N 31-36 Red Cell Distribution Width 13 % N 10.5-15 Platelet Count 273 10^3/uL N 150-450 Mean Platelet Volume 8.9 um3 N 7.4-10.4 Abs Neutrophils 3.1 10^3/uL N 1.5-7.7 Abs Lymphocytes 1.0 10^3/uL N 1.0-4.8 Abs Monocytes 0.4 10^3/uL N 0-0.8 Abs Eosinophils 0.2 10^3/uL N 0-0.6 Abs Basophils 0.1 10^3/uL N 0-0.2 Abs Nucleated RBC 0 10^3/uL Granulocyte % 65.7 % N 38-83 Lymphocyte % 20.6 % Low 25-47 Monocyte % 7.5 % High 0-7 Eosinophil % 5.1 % N 0-6 Basophil % 1.1 % N 0-2 Nucleated Red Blood Cells % 0 Basic Metabolic Panel 07/04/2017 [facility] Sodium 136 mmol/L N 133-[address] [place] [address] [phone] Potassium 3.5 mmol/L N 3.5-5.0 Chloride 105 mmol/L N 101-111 Co2 Carbon Dioxide 24 mmol/L N 22-32 Anion Gap 7 mmol/L N 2-11 Glucose 86 mg/dL N 70-100 Blood Urea Nitrogen 13 mg/dL N 6-24 Creatinine 0.80 mg/dL N 0.51-0.95 BUN/Creatinine Ratio 16.3 N 8-20 Calcium 9.2 mg/dL N 8.6-10.3 Egfr Non- 78.7 >60 Egfr 101.2 >60 7 CBC Auto Diff 07/04/2017 [facility] White Blood 7.3 10^3/uL N 3.5-10.[address] [place] [address] [phone] Red Blood Count 4.48 10^6/uL N 4.0-5.4 Hemoglobin 13.9 g/dL N 12.0-16.0 Hematocrit 41 % N 35-47 Mean Corpuscular Volume 92 fL N 80-97 Mean Corpuscular Hemoglobin 31 pg N 27-31 Mean Corpuscular HGB Conc 34 g/dL N 31-36 Red Cell Distribution Width 13 % N 10.5-15 Platelet Count 244 10^3/uL N 150-450 Mean Platelet Volume 9 um3 N 7.4-10.4 Abs Neutrophils 5.7 10^3/uL N 1.5-7.7 Abs Lymphocytes 1.0 10^3/uL N 1.0-4.8 Abs Monocytes 0.4 10^3/uL N 0-0.8 Abs Eosinophils 0.1 10^3/uL N 0-0.6 Abs Basophils 0.1 10^3/uL N 0-0.2 Abs Nucleated RBC 0.01 10^3/uL Granulocyte % 78.4 % N 38-83 Lymphocyte % 13.2 % Low 25-47 Monocyte % 5.8 % N 1-9 Eosinophil % 0.9 % N 0-6 Basophil % 1.7 % N 0-2 Nucleated Red Blood Cells % 0.1 CBC Auto Diff 04/16/2017 [facility] White Blood 7.8 10^3/uL N 3.5-10.[address] [place] [address] [phone] Red Blood Count 4.47 10^6/uL N 4.0-5.4 Hemoglobin 13.6 g/dL N 12.0-16.0 Hematocrit 41 % N 35-47 Mean Corpuscular Volume 92 fL N 80-97 Mean Corpuscular Hemoglobin 31 pg N 27-31 Mean Corpuscular HGB Conc 33 g/dL N 31-36 Red Cell Distribution Width 13 % N 10.5-15 Platelet Count 294 10^3/uL N 150-450 Mean Platelet Volume 9 um3 N 7.4-10.4 Abs Neutrophils 6.0 10^3/uL N 1.5-7.7 Abs Lymphocytes 1.0 10^3/uL N 1.0-4.8 Abs Monocytes 0.6 10^3/uL N 0-0.8 Abs Eosinophils 0.1 10^3/uL N 0-0.6 Abs Basophils 0.1 10^3/uL N 0-0.2 Abs Nucleated RBC 0.01 10^3/uL N Granulocyte % 77.5 % N 38-83 Lymphocyte % 12.9 % Low 25-47 Monocyte % 7.6 % N 1-9 Eosinophil % 1.2 % N 0-6 Basophil % 0.8 % N 0-2 Nucleated Red Blood Cells % 0.1 N Connective Tissue 04/16/2017 [facility] Anti-Nuclear Antibody 0.2 U N [address] [place] [address] [phone] Cyclic Citrullinated Peptide <15.6 U N 9 Interpretation See Comment N 10 Laboratory test 04/16/2017 [facility] Erythrocyte Sed 17 mm/Hr High 0-[address] [place] [address] [phone] Lyme Disease Serology Negative N Negative 11 Rheumatoid Factor <15 IU/mL N <15 12 Laboratory test 04/16/2017 [facility] Creatine 70 U/L N 10- [address] Kinase(CK) [place] [address] [phone] C Reactive Protein 2.57 mg/L N < 5.00 13 Comp Metabolic Panel 04/16/2017 [facility] Sodium 137 mmol/L N 133-[address] [place] [address] [phone] Potassium 4.0 mmol/L N 3.5-5.0 Chloride 104 mmol/L N 101-111 Co2 Carbon Dioxide 29 mmol/L N 22-32 Anion Gap 4 mmol/L N 2-11 Glucose 79 mg/dL N 70-100 Blood Urea Nitrogen 16 mg/dL N 6-24 Creatinine 0.96 mg/dL High 0.51-0.95 BUN/Creatinine Ratio 16.7 N 8-20 Calcium 9.4 mg/dL N 8.6-10.3 Total Protein 7.1 g/dL N 6.4-8.9 Albumin 4.3 g/dL N 3.2-5.2 Globulin 2.8 g/dL N 2-4 Albumin/Globulin Ratio 1.5 N 1-3 Total Bilirubin 0.90 mg/dL N 0.2-1.0 Alkaline Phosphatase 70 U/L N 34-104 Alt 15 U/L N 7-52 Ast 16 U/L N 13-39 Egfr Non- 63.7 N >60 Egfr 82.0 N >60 14 CBC Auto Diff 01/13/2017 [facility] White Blood 6.2 10^3/uL N 3.5-10.[address] [place] [address] [phone] Red Blood Count 4.38 10^6/uL N 4.0-5.4 Hemoglobin 13.6 g/dL N 12.0-16.0 Hematocrit 41 % N 35-47 Mean Corpuscular Volume 94 fL N 80-97 Mean Corpuscular Hemoglobin 31 pg N 27-31 Mean Corpuscular HGB Conc 33 g/dL N 31-36 Red Cell Distribution Width 13 % N 10.5-15 Platelet Count 242 10^3/uL N 150-450 Mean Platelet Volume 9 um3 N 7.4-10.4 Abs Neutrophils 4.7 10^3/uL N 1.5-7.7 Abs Lymphocytes 0.9 10^3/uL Low 1.0-4.8 Abs Monocytes 0.4 10^3/uL N 0-0.8 Abs Eosinophils 0.2 10^3/uL N 0-0.6 Abs Basophils 0.1 10^3/uL N 0-0.2 Abs Nucleated RBC 0 10^3/uL N Granulocyte % 75.4 % N 38-83 Lymphocyte % 14.2 % Low 25-47 Monocyte % 6.5 % N 1-9 Eosinophil % 2.6 % N 0-6 Basophil % 1.3 % N 0-2 Nucleated Red Blood Cells % 0 N Comp Metabolic Panel 01/13/2017 [facility] Sodium 136 mmol/L N 133-[address] [place] [address] [phone] Potassium 4.4 mmol/L N 3.5-5.0 Chloride 105 mmol/L N 101-111 Co2 Carbon Dioxide 27 mmol/L N 22-32 Anion Gap 4 mmol/L N 2-11 Glucose 86 mg/dL N 70-100 Blood Urea Nitrogen 11 mg/dL N 6-24 Creatinine 0.76 mg/dL N 0.51-0.95 BUN/Creatinine Ratio 14.5 N 8-20 Calcium 9.1 mg/dL N 8.6-10.3 Total Protein 6.6 g/dL N 6.4-8.9 Albumin 4.0 g/dL N 3.2-5.2 Globulin 2.6 g/dL N 2-4 Albumin/Globulin Ratio 1.5 N 1-3 Total Bilirubin 0.80 mg/dL N 0.2-1.0 Alkaline Phosphatase 75 U/L N 34-104 Alt 14 U/L N 7-52 Ast 17 U/L N 13-39 Egfr Non- 83.5 N >60 Egfr 107.3 N >60 15 Lipid Profile 01/13/2017 [facility] Triglycerides 46 mg/dL N 16 (Trig/Chol/HDL) [address] [place] [address] [phone] Cholesterol 160 mg/dL N 17 HDL Cholesterol 50.0 mg/dL N 18 LDL Cholesterol 101 mg/dL N 19 CBC Auto Diff 07/11/2016 [facility] White Blood 7.1 10^3/uL N 3.5-10.[address] [place] [address] [phone] Red Blood Count 4.43 10^6/uL N 4.0-5.4 Hemoglobin 13.4 g/dL N 12.0-16.0 Hematocrit 40 % N 35-47 Mean Corpuscular Volume 91 fL N 80-97 Mean Corpuscular Hemoglobin 30 pg N 27-31 Mean Corpuscular HGB Conc 33 g/dL N 31-36 Red Cell Distribution Width 13 % N 10.5-15 Platelet Count 237 10^3/uL N 150-450 Mean Platelet Volume 10 um3 N 7.4-10.4 Abs Neutrophils 5.7 10^3/uL N 1.5-7.7 Abs Lymphocytes 0.9 10^3/uL Low 1.0-4.8 Abs Monocytes 0.3 10^3/uL N 0-0.8 Abs Eosinophils 0.1 10^3/uL N 0-0.6 Abs Basophils 0.2 10^3/uL N 0-0.2 Abs Nucleated RBC 0 10^3/uL N Granulocyte % 80.0 % N 38-83 Lymphocyte % 12.2 % Low 25-47 Monocyte % 4.2 % N 1-9 Eosinophil % 1.1 % N 0-6 Basophil % 2.5 % High 0-2 Nucleated Red Blood Cells % 0 N Comp Metabolic Panel 07/11/2016 [facility] Sodium 136 mmol/L N 133-[address] [place] [address] [phone] Potassium 3.9 mmol/L N 3.5-5.0 Chloride 105 mmol/L N 101-111 Co2 Carbon Dioxide 28 mmol/L N 22-32 Anion Gap 3 mmol/L N 2-11 Glucose 109 mg/dL High 70-100 Blood Urea Nitrogen 13 mg/dL N 6-24 Creatinine 0.70 mg/dL N 0.51-0.95 BUN/Creatinine Ratio 18.6 N 8-20 Calcium 9.1 mg/dL N 8.6-10.3 Total Protein 6.5 g/dL N 6.4-8.9 Albumin 4.0 g/dL N 3.2-5.2 Globulin 2.5 g/dL N 2-4 Albumin/Globulin Ratio 1.6 N 1-3 Total Bilirubin 1.10 mg/dL High 0.2-1.0 Alkaline Phosphatase 66 U/L N 34-104 Alt 17 U/L N 7-52 Ast 19 U/L N 13-39 Egfr Non- 92.2 N >60 Egfr 118.6 N >60 20 Laboratory 07/11/2016 [facility] TSH (Thyroid 1.78 N 0.34- 5.60 test finding [address] Stim Horm) mcIU/[place] [address] [phone] Laboratory 08/14/2015 [facility] Surgical SEE RESULT 21 test finding [address] [place] [address] [phone] Laboratory 08/13/2015 [facility] Preshaped SEE RESULTS 22, 23 test finding [address] Nodp-Sijkry-B BELO <[place] [address] one NOTE> [phone] 1 [id number] 2 SEE RESULT BELOW Name: BEVERLY DAWN : [address]: Dara Schroeder MD Acct: [id number] Unit: [id number] AGE: 42 Location: [facility] Re04/13/18 SEX: F Status: DEP [facility] SPEC: [id number] ANNA: 04/13/18-0 [facility] DR: Dara Schroeder MD REQ: [id number] RECD: 04/13/18 STATUS: SOUT _ ORDERED: LEVEL 3 COMMENTS: [id number] FINAL DIAGNOSIS Shoulder, right, arthroscopic shavings: -- Benign cartilaginous tissue fragments. PRE-OPERATIVE DIAGNOSIS Full thickness rotator cuff right shoulder GROSS DESCRIPTION The specimen is received fresh labeled, Shavings Right Shoulder, and consists of a 0.7 x 0.4 x 0.1 cm aggregate of pal-white irregular soft tissue fragments which is submitted entirely in one cassette. Signed by and Reported on: Dottie Moran MD 04/14/18 1115 END OF REPORT DEPARTMENT OF PATHOLOGY, [address] [place] [address] Oscar Womack M.D. Director [facility] # [id number] 3 REFERENCE VALUE Not Applicable 4 RESULT: HLA-B27 antigen was not detected. ADDITIONAL INFORMATION Method: Flow Cytometry Performing Laboratory IA# [id number] Test Performed by: [address] [address] 5 Normal Range 180 to 914 Indeterminate Range 145 to 180 Deficient Range <145 6 Because ethnic data is not always readily [...] 15-29 5 Kidney failure <15 (or dialysis) 7 Because ethnic data is not always readily [...] 15-29 5 Kidney failure <15 (or dialysis) 8 REFERENCE VALUE <=1.0 (Negative) 9 REFERENCE VALUE <20.0 (Negative) 10 Tests for antibodies to dsDNA and CANDELARIO antigens are not performed automatically unless the JESUS result is > or= 3.0 U. Studies performed at [facility] indicate that positive JESUS results <3.0 U are rarely accompanied by positive second order tests. Test Performed by: [place] [address] 11 Serologic response to B. burgdorferi infection is not detected, but cannot rule out early infection during which low or undetectable antibody levels to B. burgdorferi may be present. If clinically indicated, a new serum specimen should be submitted in 7-14 days. Test Performed by: [facility] [address] [id number] 12 Test Performed by: [place] [address] 13 Acute inflammation: >10.00 14 Because ethnic data is not always readily [...] 15-29 5 Kidney failure <15 (or dialysis) 15 Because ethnic data is not always [...] 5 Kidney failure <15 (or dialysis) 16 Desirable <150 Borderline high 150-199 High 200-499 Very High >500 17 Desirable <200 Borderline high 200-239 High >239 18 Low <40 Desirable: 40-60 High: >60 19 Desirable: <100 mg/dL Near Optimal: 100-129 mg/dL Borderline High: 130-159 mg/dL High: 160-189 mg/dL Very High: >189 mg/dL 20 Because ethnic data is not always readily [...] 15-29 5 Kidney failure <15 (or dialysis) 21 SEE RESULT BELOW Name: BEVERLY DAWN : [address]: Dara Schroeder MD Acct: [id number] Unit: [id number] AGE: 39 Location: [facility] Re08/14/15 SEX: F Status: REG [facility] SPEC: [id number] ANNA: 08/14/15-50 [facility] DR: Dara Schroeder MD REQ: [id number] RECD: 08/14/15-1202 STATUS: SOUT _ ORDERED: LEVEL III FINAL [...] performed at Main Lab DEPARTMENT OF PATHOLOGY, [address] [place] [address] Oscar Womack M.D. Director [facility] # [id number] 22 SPRAIN OF ANTERIOR CRUCIATE LIGAMENT OF RIGHT KNEE 23 SEE RESULTS BELOW [id number] PRESHAPED BTB TRANSFUSED 08/14/15 0700 Procedures Date Code Description Status 04/13/2018 68231 Arthroscopy Shoulder,W/Rotator Cuff Repair Completed 04/13/2018 36599 Arthroscopy Shoulder,W/Rotator Cuff Repair Completed 04/13/2018 27913 Arthroscopy,Shoulder Decompression Of Subacromial Space Completed W/Acromio 04/13/2018 60497 Arthroscopy,Shoulder Decompression Of Subacromial Space Completed W/Acromio 04/13/2018 36547 Tenodesis Biceps Long Tendon Completed 04/13/2018 90415 Tenodesis Biceps Long Tendon Completed 01/06/2018 61639 Holter Monitor Review (24 hr)dr gurdeep & interp only Completed 12/30/2017 52874 ECG Monitor/Recording W/Visual Superimposition Scanning Completed 09/29/2017 14729 Arthroscopy Shoulder,W/Rotator Cuff Repair Completed 09/29/2017 38453 Arthroscopy Shoulder,W/Rotator Cuff Repair Completed 07/07/2017 77563 Arthroscopy Shoulder Debridement Extensive Completed 07/07/2017 97022 Arthroscopy,Shoulder Decompression Of Subacromial Space Completed W/Acromio 07/07/2017 16538 Arthroscopy Shoulder,W/Rotator Cuff Repair Completed 07/07/2017 12322 Arthroscopy Biceps Tenodesis Completed 06/23/2017 64363 EKG Tracing & Interpretation Completed 05/09/2017 97621 Inject/Drain Joint/Bursa Major W/O US Completed 01/29/2017 [id number] Mammogram Completed 07/16/2016 04536 Holter Monitor Review (24 hr)dr gurdeep & interp only Completed 07/11/2016 27812 ECG Monitor/Recording W/Visual Superimposition Scanning Completed 07/10/2016 44491 EKG Tracing & Interpretation Completed 08/14/2015 90107 Arthroscopy,Knee,ACL Reconstruction Completed 08/14/2015 95370 Arthroscopy,Knee,ACL Reconstruction Completed 08/14/2015 05559 Arthroscopy,Knee,Meniscectomy Medial Or Lateral Completed Encounters Type Date Location Provider Dx Diagnosis Office Visit 08/04/2018 Orthopedic Dara Schroeder MD S46.011D Strain of 1:45p Services Of [facility]. 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 polyarthropathy Z79.899 Other long term care phlebotomist (current) drug therapy M79.1 Myalgia R51 Headache Office Visit 03/26/2018 1:15p Orthopedic Dara Schroeder S46.011D Strain of Services Of MD padilla/magalys the C.M.A. rotator cuff of right shoulder, subs Office Visit 03/12/2018 2:15p Camilo Schroeder S46.011D Strain of Services Of MD padilla/magalys the C.M.A. rotator cuff of right shoulder, subs S46.012D Strain of valerie/tend the rotator cuff of left shoulder, subs Office 02/03/2018 Orthopedic Christian Aguilar, M19.172 Post-traumatic Visit 1:45p Services Of MD alston left C.M.A. 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 left shoulder, subs Office Visit 06/23/2017 Janet Dobson, Z01.818 Encounter for other 11:00a Medicine - TELECOMMUNICATIONS FIELD ENGINEER preprocedural [place] examination S46.102A Unsp injury of musc/fasc/tend long hd bicep, left arm, init G89.29 Other chronic pain Office Visit 05/27/2017 8:45a Orthopedic Dara Schroeder, S46.012D Strain of Services Of MD padilla/magalys the C.M.A. rotator cuff of left shoulder, subs S46.102A Unsp injury of musc/fasc/tend long hd bicep, left arm, init G56.22 Lesion of ulnar nerve, left upper limb Office Visit 05/09/2017 9:20a Janet Dobson, M25.512 Pain in left Medicine - TELECOMMUNICATIONS FIELD ENGINEER shoulder [place] M79.602 Pain in left arm Office Visit 05/09/2017 10:45a Orthopedic Dara Schroeder M25.512 Pain in left Services Of shoulder C.M.A. M75.42 Impingement syndrome of left shoulder S46.102A Unsp injury of musc/fasc/tend long hd bicep, left arm, init M75.22 Bicipital tendinitis, left shoulder Office Visit 04/16/2017 2:00p Janet Dobson NP M79.602 Pain in left Medicine - arm [place] M25.559 Pain in unspecified hip M54.5 Low back pain M79.1 Myalgia R20.8 Other disturbances of skin sensation Office Visit 01/13/2017 9:00a [employer] Internal Tom Olya, Z00.00 Encntr for Medicine - TELECOMMUNICATIONS FIELD ENGINEER general adult [place] medical exam w/o abnormal findings S81.801A Unspecified open wound, right lower leg, initial encounter Z13.220 Encounter for screening for lipoid disorders Z13.1 Encounter for screening for diabetes mellitus Z12.31 Encntr screen mammogram for malignant neoplasm of breast Office Visit 08/07/2016 9:20a [facility] Internal Tom Dobson, J06.9 Acute upper Medicine - TELECOMMUNICATIONS FIELD ENGINEER respiratory [place] infection, unspecified B35.1 Tinea unguium Office Visit 07/10/2016 4:00p [facility] Internal Tom Dobson NP R00.2 Palpitations [facility] J01.90 Acute sinusitis, unspecified Office Visit 12/07/2015 2:00p [facility] Internal Melvin Fang M25.512 Pain in left Elvia Browning M.D. shoulder [place] M54.2 Cervicalgia M25.512 Pain in left shoulder M54.2 Cervicalgia Office Visit 06/05/2015 2:30p Orthopedic Dara Schroeder, S83.511D Sprain of Services Of MD mcknight C.M.ABel cruciate ligament of right knee, subs M79.7 Fibromyalgia Office Visit 05/17/2015 2:30p Orthopedic Alejandrina Burns M25.461 Effusion, right Services Of [place] knee C.M.A. 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 719.46 Pain Joint Lower Leg Office Visit 06/27/2013 1:08p [facility] Ashley 595.0 Cystitis Acute Assoc,randy Izquierdo M.D. Hospitalists 724.2 Lumbago Office Visit 06/25/2013 1:07p [facility] Assoc,randy Izquierdo, 724.2 [facility] Hospitalists Fanta 595.0 Cystitis Acute Plan of Treatment Future Appointment(s):10/22/2018 2:30 pm - Dara Schroeder MD at Orthopedic Services Of .M.ABel10/07/2018 - Christian Aguilar, MDM19.172 Post-traumatic osteoarthritis, left ankle and footReferral:[facility], Follow up:Follow Up: As ihmzzzB02.775 Osteophyte, left foot
[2018-10-13 15:58] VITALS: BP 136/93
[2018-10-13] MEDS ORDERED: predniSONE TAB* 20 MG PO ONE (16:25)
[2018-10-13] MEDS ORDERED: Albuterol 2.5 MG/3 ML NEB.SOL* (0.083%) INH ONE (16:25)
--- NOTE | 2018-10-13 16:30 | UC ---
Respiratory Complaint HPI - HPI Summary HPI Summary: 43-year-old woman comes in with chief complaint of wheezing and shortness of breath for 1 week. Patient reports she hasn't visited a friend has animals that she is allergic to and she started having wheezing at that time. She's been having some chest congestion also. She's been using her albuterol inhaler repeatedly. She feels jittery. Albuterol inhaler does help. No palpitations or chest pains. No edema no calf pain. Patient does have a history of DVT. Patient is not concerned of a DVT at this time. No fevers. - History of Current Complaint Chief Complaint: UCRespiratory Stated Complaint: ASTHMA Time Seen by Provider: 10/13/18 16:07 Hx Last Menstrual Period: bc Pain Intensity: 0 - Allergies/Home Medications Allergies/Adverse Reactions: Allergies Allergy/AdvReac Type Severity Reaction Status Date / Time erythromycin base Allergy Severe GI Upset Verified 10/13/18 15:58 ether Allergy Severe Nausea And Verified 10/13/18 15:58 Vomiting phenazopyridine Allergy Severe Hives Verified 10/13/18 15:58 prochlorperazine Allergy Severe Altered Verified 10/13/18 15:58 Mental Status tizanidine Allergy Severe Hives Verified 10/13/18 15:58 Adhesive Tape Allergy Blisters Verified 10/13/18 15:58 lactose Allergy GI Upset Verified 10/13/18 15:58 latex Allergy Blisters Verified 10/13/18 15:58 pregabalin Allergy See Comment Verified 10/13/18 15:58 ENVIRONMENT/SEASONAL Allergy ITCHY Uncoded 10/13/18 15:58 ALLERGIES WATERY EYES, SNEEZE, STUFFY WALNUTS Allergy GI Upset Uncoded 05/18/18 12:49 Home Medications: Home Medications Albuterol HFA INHALER* [Ventolin HFA Inhaler*] 1 puff INH Q4H PRN 10/13/18 [ History Confirmed 10/13/18] PMH/Surg Hx/FS Hx/Imm Hx Previously Healthy: Yes Respiratory History: Asthma GI/ History: Gastroesophageal Reflux Other History Of: Negative For: Anticoagulant Therapy - Surgical History Surgical History: Yes Surgery Procedure, Year, and Place: LEFT ANKLE FRACTURE WITH REPAIR X 7 (WITH FUSION, PLATES AND SCREWS); [facility]. LEFT KNEE SCOPE X 2, [facility]. LAPAROSCOPIC CHOLECYSTECTOMY, [facility]. 07/2015 Rt KNEE - ACL REPLACEMENT. LEFT SHOULDER ROTATOR CUFF REPAIR AND BISCEPS REPAIR 06/2017 and 2017. LEFT SHOULDER ROTATOR REPAIR 09/2017. RIGHT BICEP/ROTATOR CUFF REPAIR - 04/2018 - Family History Known Family History: Positive: Cardiac Disease - Social History Alcohol Use: Weekly Alcohol Amount: 2-3 drinks per week Substance Use Type: Marijuana Substance Use Comment - Amount & Last Used: daily Smoking Status (MU): Never Smoked Tobacco Have You Smoked in the Last Year: Yes - marijuana Household Exposure Type: Cigarettes - Immunization History Most Recent Influenza Vaccination: 2011 Most Recent Tetanus Shot: UNSURE Most Recent Pneumonia Vaccination: NEVER Review of Systems All Other Systems Reviewed And Are Negative: Yes Constitutional: Positive: Negative Skin: Positive: Negative Eyes: Positive: Negative ENT: Positive: Negative Respiratory: Positive: Other - see hpi Cardiovascular: Positive: Negative Gastrointestinal: Positive: Negative Motor: Positive: Negative Neurovascular: Positive: Negative Musculoskeletal: Positive: Negative. Negative: Calf Tenderness Neurological: Positive: Negative Psychological: Positive: Negative Is Patient Immunocompromised?: No Physical Exam Triage Information Reviewed: Yes Completion Of Physical Exam Limited Due To: Other - Mildly anxious. No respiratory distress at rest. Appearance: Well-Appearing, No Pain Distress, Well-Nourished Vital Signs: Initial Vital Signs Temp 98.7 F 10/13/18 15:54 Pulse 97 10/13/18 15:54 Resp 22 10/13/18 15:54 BP 136/93 10/13/18 15:54 Pulse Ox 100 10/13/18 15:54 Vital Signs Reviewed: Yes Eye Exam: Normal Eyes: Positive: Conjunctiva Clear ENT: Positive: Pharynx normal, TMs normal Neck exam: Normal Neck: Positive: Supple Respiratory: Positive: No respiratory distress, No accessory muscle use, Wheezing Cardiovascular: Positive: RRR Musculoskeletal Exam: Normal Musculoskeletal: Positive: Strength Intact, ROM Intact, No Edema, Other: - No calf tenderness. Neurological Exam: Normal Neurological: Positive: Alert, Muscle Tone Normal Psychological Exam: Normal Psychological: Positive: Age Appropriate Behavior Skin Exam: Normal Respiratory Course/Dx - Course Course Of Treatment: Patient Name: KYE DAWN Medical Record#: [id number] Ordering Physician: Scooby Samano MD Acct.#: [id number] : 1975 Age: 43 Sex: F Location: [facility] Exam Date: 10/13/181624 ADM Status: REG ER Order Information: CHEST PA LAT 2 VWS Accession Number: [id number] CPT: 76213 HISTORY: sob,wheezing COMPARISONS: None relevant available at the time of dictation. VIEWS: 4: Frontal dual-energy and lateral views of the chest. FINDINGS: CARDIOMEDIASTINAL SILHOUETTE: The cardiomediastinal silhouette is normal. CHRISTINA: The christina are normal. PLEURA: The costophrenic angles are sharp. No pleural abnormalities are noted. LUNG PARENCHYMA: The lungs are clear. ABDOMEN: The upper abdomen is clear. There is no subphrenic gas. BONES AND SOFT TISSUES: Degenerative changes are noted along the spine. OTHER: None. IMPRESSION: NO ACTIVE CARDIOPULMONARY DISEASE. <Electronically signed by Juaquin Dorado MD in OV> 10/13/185 I discussed the x-ray report with the patient. Patient breathing is improved after a albuterol nebulizer in the clinic. She was also given prednisone 60 by mouth the clinic. Plan is to treat with prednisone and follow-up with her primary care doctor. Reevaluate sooner if worse or any questions or concerns. Patient does have a history of DVT and we discussed the possibility of pulmonary embolus. At this time it does not appear to be pulmonary embolus in that the wheezing improved with the albuterol and the patient has no chest pain. We discussed that if things did not improve likely expect them to with an asthma exacerbation she needs to go the emergency department for further evaluation for possible pulmonary embolus. - Differential Dx/Diagnosis Provider Diagnosis: Asthma Discharge - Sign-Out/Discharge Documenting (check all that apply): Patient Departure All imaging exams completed and their final reports reviewed: Yes - Discharge Plan Condition: Stable Disposition: HOME Prescriptions: Albuterol HFA INHALER* [Ventolin HFA Inhaler*] 2 puff INH Q4H PRN #1 mdi PRN Reason: Wheezing predniSONE TAB* [Deltasone 20 MG TAB*] 40 mg PO DAILY #10 tab Patient Education Materials: Asthma (ED) Referrals: Jody Pennington MD [Primary Care Provider] - Additional Instructions: FOLLOW UP WITH YOUR DOCTOR. GO TO THE EMERGENCY DEPARTMENT FOR ANY WORSENING OF YOUR CONDITION; CHEST PAIN, SHORTNESS OF BREATH, ANY CONCERN OF DVT OR PULMONARY EMBOLIS, YOU FEEL ILL OR QUESTIONS OR CONCERNS. - Billing Disposition and Condition Condition: STABLE Disposition: Home
== END 2018-10-13 17:20 | disposition home or self-care (01) ==
LOC: UCEAST 15:50
DX: J45.909 Unspecified asthma, uncomplicated (principal); Z91.09 Other allergy status, other than to drugs and biological substances; Z91.018 Allergy to other foods; Z91.040 Latex allergy status; Z91.011 Allergy to milk products; Z88.1 Allergy status to other antibiotic agents; Z88.8 Allergy status to other drugs, medicaments and biological substances
CPT/HCPCS: 71046; 99213; G0463; J7512

== ENCOUNTER 2019-07-21 13:29 | Emergency (ER) | payer SELFPAY ==
[2019-07-21 13:38] VITALS: BP 143/81
--- NOTE | 2019-07-21 13:46 | UC ---
Throat Pain/Nasal [place] HPI - HPI Summary HPI Summary: 43yo with history of asthma and chronic pain, with 2 days of sinus pressure, cogh and sore throat. No fever, chills or myalgias. Hx of asthma, but has not been using symbicort regulary and has not used albuterol. - History of Current Complaint Chief Complaint: UCGeneralIllness Stated Complaint: SINUS PROBLEM Time Seen by Provider: 07/21/19 13:43 Hx Obtained From: Patient Hx Last Menstrual Period: mirena Onset/Duration: Sudden Onset, Lasting Days - 2 Severity: Mild Pain Intensity: 4 Cough: Nonproductive Associated Signs & Symptoms: Positive: Sinus Discomfort - Epiglottits Risk Factors Epiglottis Risk Factors: Negative - Allergies/Home Medications Allergies/Adverse Reactions: Allergies Allergy/AdvReac Type Severity Reaction Status Date / Time erythromycin base Allergy Severe GI Upset Verified 04/20/19 09:58 ether Allergy Severe Nausea And Verified 04/20/19 09:58 Vomiting phenazopyridine Allergy Severe Hives Verified 04/20/19 09:58 prochlorperazine Allergy Severe Altered Verified 04/20/19 09:58 Mental Status tizanidine Allergy Severe Hives Verified 04/20/19 09:58 Adhesive Tape Allergy Blisters Verified 04/20/19 09:58 lactose Allergy GI Upset Verified 04/20/19 09:58 latex Allergy Blisters Verified 04/20/19 09:58 pregabalin Allergy See Comment Verified 04/20/19 09:58 ENVIRONMENT/SEASONAL Allergy ITCHY Uncoded 01/25/19 13:40 ALLERGIES WATERY EYES, SNEEZE, STUFFY WALNUTS Allergy GI Upset Uncoded 01/25/19 13:40 PMH/Surg Hx/FS Hx/Imm Hx Respiratory History: Asthma Psychological History: Other - chronic pain secondary to arthritis and multiple past surgeries. Other History Of: Negative For: Anticoagulant Therapy - Surgical History Surgical History: Yes Surgery Procedure, Year, and Place: LEFT ANKLE FRACTURE WITH REPAIR X 7 (WITH FUSION, PLATES AND SCREWS); [facility]. LEFT KNEE SCOPE X 2, [facility]. LAPAROSCOPIC CHOLECYSTECTOMY, [facility]. 07/2015 Rt KNEE - ACL REPLACEMENT. LEFT SHOULDER ROTATOR CUFF REPAIR AND BISCEPS REPAIR 06/2017 and 2017. LEFT SHOULDER ROTATOR REPAIR 09/2017. RIGHT BICEP/ROTATOR CUFF REPAIR - 04/2018 - Family History Known Family History: Positive: Cardiac Disease - Social History Occupation: Employed Part-time Lives: With Family Alcohol Use: None Alcohol Amount: 2-3 drinks per week Substance Use Type: Marijuana Substance Use Comment - Amount & Last Used: daily Smoking Status (MU): Never Smoked Tobacco Have You Smoked in the Last Year: Yes - marijuana Household Exposure Type: Cigarettes - Immunization History Most Recent Influenza Vaccination: 2011 Most Recent Tetanus Shot: UNSURE Most Recent Pneumonia Vaccination: NEVER Review of Systems All Other Systems Reviewed And Are Negative: Yes Constitutional: Positive: Fatigue Skin: Positive: Negative Eyes: Positive: Negative ENT: Positive: Sore Throat, Sinus Congestion, Sinus Pain/Tenderness Respiratory: Positive: Cough Cardiovascular: Positive: Negative Gastrointestinal: Positive: Other - hx of reflux Genitourinary: Positive: Negative Motor: Positive: Negative Neurovascular: Positive: Negative Musculoskeletal: Positive: Negative Neurological: Positive: Negative Psychological: Positive: Negative Is Patient Immunocompromised?: No Physical Exam Triage Information Reviewed: Yes Appearance: Ill-Appearing - looks mildly unwell, Pain Distress - mild Vital Signs: Initial Vital Signs Temp 98 F 07/21/19 13:36 Pulse 84 07/21/19 13:36 Resp 20 07/21/19 13:36 BP 143/81 07/21/19 13:36 Pulse Ox 100 07/21/19 13:36 Eye Exam: Normal ENT: Positive: Pharynx normal, TMs normal Neck: Positive: Supple, Nontender, No Lymphadenopathy Respiratory: Positive: Lungs clear, Normal breath sounds Cardiovascular: Positive: RRR, No Murmur Musculoskeletal Exam: Normal Neurological Exam: Normal Psychological Exam: Normal Skin Exam: Normal Throat Pain/Nasal Course/Dx - Course Course Of Treatment: symptomatic treatment of viral uri - Differential Dx/Diagnosis Differential Diagnosis/HQI/PQRI: Pharyngitis, Sinusitis, Tonsillitis, URI Provider Diagnosis: URI, acute Discharge ED - Sign-Out/Discharge Documenting (check all that apply): Patient Departure All imaging exams completed and their final reports reviewed: No Studies - Discharge Plan Condition: Stable Disposition: HOME Patient Education Materials: Upper Respiratory Infection (ED) Referrals: Jody Pennington MD [Primary Care Provider] - Additional Instructions: Continue symptomatic treatment of viral respiratory illness, with follow up if you develop fever or if sinus symptoms persist for more than 10 days. Use your Symbicort regularly at this time. - Billing Disposition and Condition Condition: STABLE Disposition: Home
== END 2019-07-21 14:17 | disposition home or self-care (01) ==
LOC: UCEAST 13:29
DX: J06.9 Acute upper respiratory infection, unspecified (principal); J45.909 Unspecified asthma, uncomplicated; Z88.1 Allergy status to other antibiotic agents; Z91.09 Other allergy status, other than to drugs and biological substances; Z91.040 Latex allergy status; Z91.011 Allergy to milk products; Z91.018 Allergy to other foods; Z88.8 Allergy status to other drugs, medicaments and biological substances; Z88.4 Allergy status to anesthetic agent
CPT/HCPCS: 99211; G0463

== ENCOUNTER 2024-06-15 07:31 | Observation (INO) ==
[2024-06-15] MEDS: Ondansetron 4 mg VIAL 2 MG/ML 2 ml VIAL IV ONE (08:00)
[2024-06-15] MEDS: Labetalol IV 5 MG/ML 20 ml VIAL IV PUSH ONE ×2 (08:00→10:58)
[2024-06-15] MEDS: Lactated Ringers 1000 ml BAG 1,000 ML IV ONE (08:01)
[2024-06-15 08:04] LABS: ABS Basophils 0.1 10^3/uL (0.0-0.1); ABS Eosinophils 0.1 10^3/uL (0.0-0.5); ABS Lymphocytes 0.5 10^3/uL (1.0-4.8); ABS Monocytes 0.3 10^3/uL (0.0-0.9); ABS Neutrophils 11.6 10^3/uL (1.5-7.6); Eosinophil % 0.4 %; Hematocrit 39.3 % (35-45); Hemoglobin 13.3 g/dL (11.5-14.3); Lymphocyte % 3.8 %; Mean Corpuscular Hgb Conc 33.8 g/dL (31-36); Mean Corpuscular Volume 91.8 fL (80-97); Mean Platelet Volume 8.7 fL (7.5-11.2); Platelet Count 290 10^3/uL (150-450); Red Blood Count 4.28 10^6/uL (3.63-4.92); Red Cell Distribution Width 12.9 % (12-17); White Blood Count 12.5 10^3/uL (3.8-11.8)
[2024-06-15 08:29] LABS: High Sens Troponin Baseline 9 pg/mL (<15); INR 0.98 (0.85-1.14)
[2024-06-15 08:41] LABS: ALT 12 U/L (7-52); AST 16 U/L (13-39); Albumin 4.6 g/dL (3.2-5.2); Albumin/Globulin Ratio 1.9 (1-3); Alkaline Phosphatase 83 U/L (35-149); Anion Gap 16 mmol/L (2-16); Blood Urea Nitrogen 15 mg/dL (6-24); CO2 Carbon Dioxide 19 mmol/L (22-32); Calcium 9.4 mg/dL (8.6-10.3); Chloride 100 mmol/L (101-111); Creatinine, Serum 0.71 mg/dL (0.51-0.95); Globulin 2.4 g/dL (2-4); Glucose 147 mg/dL (70-100); Potassium 3.5 mmol/L (3.5-5.0); Sodium 135 mmol/L (135-145); Total Bilirubin 1.2 mg/dL (0.2-1.0); eGFR CKD-EPI 104.2 (>60)
[2024-06-15 08:47] LABS: HCG Pregnancy < 0.60 mIU/mL
[2024-06-15 08:52] LABS: T4, Total 12.59 mcg/dL (6.09-12.23)
[2024-06-15 08:56] LABS: TSH Ultra Thyroid Stim Horm 2.19 mcIU/mL (0.34-5.60)
[2024-06-15 09:18] LABS: Urine Appearance Clear; Urine Bilirubin Negative (Negative); Urine Blood Negative (Negative); Urine Color Light-Yellow; Urine Glucose Negative (Negative); Urine Ketones 2+ (Negative); Urine Nitrite Negative (Negative); Urine Protein Negative (Negative); Urine Specific Gravity 1.012 (1.002-1.030); Urine Urobilinogen Negative (Negative)
[2024-06-15 09:37] LABS: High Sensitivity Troponin 1 Hr 11 pg/mL (<15)
[2024-06-15] MEDS: Al Hydrox/Mg Hydrox/Simet LIQ 30 ML UDC PO ONE (11:26)
[2024-06-15] MEDS: niCARdipine 0.1MG/ML IVPREMIX 20 MG/200 ML BAG IV SCH ×2 (11:41→15:22)
[2024-06-15] MEDS: Magnesium Hydroxide LIQ 30 ML UDC PO ONE (12:26)
[2024-06-15] MEDS: Iohexol 350 (CONTRAST) 500 ML MDV IV ONE (13:17)
[2024-06-15] MEDS: Enoxaparin 40 MG/0.4 ML SYR SUBCUT SCH (14:35)
[2024-06-15] MEDS: Ondansetron 4 mg VIAL 2 MG/ML 2 ml VIAL IV PRN (18:05)
[2024-06-15] MEDS: Labetalol IV 5 MG/ML 20 ml VIAL IV PUSH PRN (18:36)
[2024-06-16 06:03] LABS: ABS Lymphocytes 0.8 10^3/uL (1.0-4.8); ABS Monocytes 0.3 10^3/uL (0.0-0.9); ABS Neutrophils 6.9 10^3/uL (1.5-7.6); Eosinophil % 0.1 %; Hematocrit 35.5 % (35-45); Hemoglobin 12.2 g/dL (11.5-14.3); Lymphocyte % 10.4 %; Mean Corpuscular Hemoglobin 31.5 pg (27-33); Mean Corpuscular Hgb Conc 34.2 g/dL (31-36); Mean Corpuscular Volume 92.1 fL (80-97); Mean Platelet Volume 8.9 fL (7.5-11.2); Platelet Count 238 10^3/uL (150-450); Red Blood Count 3.85 10^6/uL (3.63-4.92); White Blood Count 8.1 10^3/uL (3.8-11.8)
[2024-06-16 06:16] LABS: Calcium 8.7 mg/dL (8.6-10.3); Creatinine, Serum 0.82 mg/dL (0.51-0.95); Magnesium 1.9 mg/dL (1.9-2.7); Potassium 3.1 mmol/L (3.5-5.0); eGFR CKD-EPI 87.6 (>60)
[2024-06-16] MEDS: DULoxetine DR 30 mg CAP PO SCH (09:39)
[2024-06-16] MEDS: DULoxetine DR 60 mg CAP PO SCH (09:39)
[2024-06-16] MEDS: Potassium EFFERVES 25 meq TAB PO ONE (10:48)
[2024-06-16 13:37] VITALS: BP 141/99
[2024-06-23 01:30] LABS: Urine Collection Duration 24 h; Urine Total Metanephrines 451 mcg/24 h; Urine Volume 1250 mL
== END 2024-06-16 14:40 | disposition home or self-care (01) ==
LOC: EDHOLD 07:31 → ED 07:31 → SUATTDRO 13:02 → ICU 15:51 → EDHOLD 16:06 → MED 20:59
PROVIDERS: ADMIT Internal Medicine Critical Care Medicine; ATTEND Student in an Organized Health Care Education/Training Program